=== PATIENT | male | born 1940 | race Caucasian/White ===

== ENCOUNTER 2016-08-31 09:48 | Observation (INO) | payer MEDICARE ==
[~2016-08-31] VITALS: Ht 182.9 cm; Wt 92.2 kg
[~2016-08-31 09:48] MED LIST: ACCUPRIL10 MG PO; AMOX/K CLAV875 M1 PO; AMOXICILLIN500 MG PO; ATENOLOL50 MG OR; BAYER ASA325 MG PO; BENADRYL 50MG C50 MG PO; BL ADULT ASA81 MG; CENTRUM PO; CIPRO500 MG OR; EX-LAX15 M1 OR; EX-LAX15 MG OR; FISH OIL CON1000 MG OR; FISH OIL CON300 MG PO; FLEXERIL PO; FLOMAX0.4 M1 PO; FLOMAX0.4 MG OR; FLONASE0.05 %; IBUPROFEN800 MG PO; LIPITOR10 MG PO; LIPITOR20 MG OR; LORTAB 1010 MG PO; LORTAB5 OR; MECLIZINE25 M1 OR; MEDDOSEPAK PO; MUPIROCIN2 % EX; NITROQUICK0.4 MG SL; NORVASC10 MG OR; NORVASC10 MG PO; NYSTATIN100000 M3 TOP; OMEPRAZOLE20 MG OR; OMEPRAZOLE20 MG PO; PAXIL30 MG; PLAVIX75 MG PO; PROVENTIL HFA; PROVENTIL0.083 % IN; RANITIDINE150 M1; ZANTAC150 M1 PO
[2016-08-31 10:48] LABS: HEMATOCRIT 42.4 % (39.0-50.0); HEMOGLOBIN 14.1 g/dl (14.0-18.0); IMMATURE GRANULOCYTES 0.4 % (0.0-1.0); MEAN CELL VOLUME 93.2 fL CALC (80.0-100.0); MEAN CORPUSCULAR HGB CONC 33.3 g/L CALC (32.0-36.0); NEUT# 6.36 thou/uL (1.82-7.42); RED BLOOD COUNT 4.55 mill/uL (4.70-6.10); RED CELL DISTRI WIDTH 13.7 % (11.5-15.5)
[2016-08-31 11:12] LABS: ALBUMIN 4.5 g/dL (3.2-5.0); ALKALINE PHOSPHATASE 100 u/l (38-126); AMYLASE 41 u/l (30-110); ANION GAP 16 (6-22 (CALC)); BILIRUBIN, TOTAL 0.3 mg/dL (0.0-1.4); BUN 14 mg/dL (8-23); BUN/CREATININE RATIO 14 (12-20 (CALC)); CALCIUM 9.3 mg/dL (8.4-10.2); CARBON DIOXIDE 25 mmol/l (22-30); CHLORIDE 105 mmol/l (95-108); GFR > 60 ML/MIN (>=60 (CALC)); GFR FOR AFR.AMER. > 60 ML/MIN (>=60 (CALC)); GLUCOSE 103 mg/dL (82-115); LIPASE 48 u/l (23-300); POTASSIUM 3.8 mmol/l (3.5-5.1); SGOT/AST 22 u/l (19-48); SGPT/ALT 24 u/l (11-66); SODIUM 141 mmol/l (137-146); TOTAL PROTEIN 7.6 g/dL (6.3-8.2)
[2016-08-31 11:24] LABS: MYOGLOBIN 42 ng/mL (0 - 121)
[2016-08-31 13:35] VITALS: BP 182/76
[2016-08-31] MEDS ORDERED: BICALUTAMIDE50 MG PO (14:55)
[2016-08-31] MEDS ORDERED: CYCLOBENZAPR10 MG PO (14:55)
[2016-08-31] MEDS ORDERED: FLONASE NASAL50 MCG (14:56)
[2016-08-31] MEDS ORDERED: GABAPENTIN300 MG PO (14:57)
[2016-08-31] MEDS ORDERED: ZOHYDRO ER15 M1 PO (14:59)
[2016-08-31] MEDS ORDERED: MICRO-K10 ME1 PO (15:00)
[2016-08-31] MEDS ORDERED: MORPHINE SUL30 M3 PO (15:01)
[2016-08-31] MEDS ORDERED: OXYCODONE HCL15 MG PO (15:02)
[2016-08-31] MEDS ORDERED: PAROXETINE10 MG PO (15:03)
[2016-08-31] MEDS ORDERED: PREDNISONE5 MG PO (15:04)
[2016-08-31 18:30] VITALS: BP 145/70
[2016-09-01] VITALS: BP 158/69
[2016-09-01 04:00] VITALS: BP 125/66
[2016-09-01 06:52] LABS: ANION GAP 13 (6-22 (CALC)); BUN 13 mg/dL (8-23); BUN/CREATININE RATIO 13 (12-20 (CALC)); CALCIUM 9.2 mg/dL (8.4-10.2); CALCULATED LDLCHOLESTEROL 46 mg/dL (62-129 (CALC)); CARBON DIOXIDE 25 mmol/l (22-30); CHLORIDE 108 mmol/l (95-108); GFR > 60 ML/MIN (>=60 (CALC)); GFR FOR AFR.AMER. > 60 ML/MIN (>=60 (CALC)); GLUCOSE 89 mg/dL (82-115); HDL CHOLESTEROL 45 mg/dL (>=40); POTASSIUM 4.1 mmol/l (3.5-5.1); SODIUM 142 mmol/l (137-146); TOTAL CHOLESTEROL 123 mg/dl (0-199); TOTAL TRIGLYCERIDES 162 mg/dl (30-149); VLDL CHOLESTROL 32 mg/dl (0-38 (CALC))
[2016-09-01 06:55] LABS: HEMATOCRIT 38.8 % (39.0-50.0); IMMATURE GRANULOCYTES 0.7 % (0.0-1.0); MEAN CELL VOLUME 92.4 fL CALC (80.0-100.0); MEAN CORPUSCULAR HGB CONC 33.5 g/L CALC (32.0-36.0); NEUT# 4.72 thou/uL (1.82-7.42); RED BLOOD COUNT 4.2 mill/uL (4.70-6.10); RED CELL DISTRI WIDTH 13.7 % (11.5-15.5)
[2016-09-01 07:52] LABS: MAGNESIUM 2.2 mg/dL (1.6-2.3)
[2016-09-01 08:15] VITALS: BP 159/79
[2016-09-01 08:19] VITALS: BP 159/79
== END 2016-09-01 10:23 | disposition home or self-care (01) ==
LOC: ENPENDDIS → ED 09:48 → ED-I 11:40 → ED 12:18 → MS2 12:19
PROVIDERS: Emergency Medicine; ADMIT Internal Medicine; ATTEND Internal Medicine
DX: R07.9 Chest pain, unspecified (principal); I25.10 Atherosclerotic heart disease of native coronary artery without angina pectoris; I10 Essential (primary) hypertension; F17.210 Nicotine dependence, cigarettes, uncomplicated; C61 Malignant neoplasm of prostate; C79.51 Secondary malignant neoplasm of bone; G89.3 Neoplasm related pain (acute) (chronic); Z79.02 Long term (current) use of antithrombotics/antiplatelets; Z79.82 Long term (current) use of aspirin; Z95.1 Presence of aortocoronary bypass graft; Z79.899 Other long term (current) drug therapy

== ENCOUNTER 2018-05-16 16:11 | Inpatient (IN) | payer MEDICARE ==
[~2018-05-16] VITALS: Ht 182.9 cm; Wt 90.6 kg
[~2018-05-16 16:11] MED LIST changes: +BICALUTAMIDE50 MG PO; +CYCLOBENZAPR10 MG PO; +FLONASE NASAL50 MCG; +GABAPENTIN300 MG PO; +MICRO-K10 ME1 PO; +MORPHINE SUL30 M3 PO; +OXYCODONE HCL15 MG PO; +PAROXETINE10 MG PO; +PREDNISONE5 MG PO; +ZOHYDRO ER15 M1 PO
--- NOTE | 2018-05-16 16:15 | NUR ---
PATIENT BACK TO ROOM VIA WHEELCHAIR.
[2018-05-16] MEDS ORDERED: WELLBUTRIN SR150 MG PO (17:18)
[2018-05-16] MEDS ORDERED: DIAZEPAM5 MG PO (17:18)
[2018-05-16 17:19] LABS: IMMATURE GRANULOCYTES 0.6 % (0.0-5.0); MEAN CORPUSCULAR HGB 35.8 pG CALC (26.0-32.0); MEAN CORPUSCULAR HGB CONC 32.3 g/L CALC (32.0-36.0); NEUT# 3.63 thou/uL (1.82-7.42); RED BLOOD COUNT 2.43 mill/uL (4.70-6.10); RED CELL DISTRI WIDTH 19.8 % (11.5-15.5)
[2018-05-16] MEDS ORDERED: LYNPARZA150 MG PO (17:19)
[2018-05-16 17:33] LABS: HEMATOCRIT 26.9 % (39.0-50.0); HEMOGLOBIN 8.7 g/dl (14.0-18.0); MEAN CELL VOLUME 110.7 fL CALC (80.0-100.0)
[2018-05-16 17:35] LABS: ALBUMIN 3.7 g/dL (3.2-5.0); ALKALINE PHOSPHATASE 179 u/l (38-126); BILIRUBIN, TOTAL 0.4 mg/dL (0.0-1.4); BUN 16 mg/dL (8-23); BUN/CREATININE RATIO 15 (12-20 (CALC)); CARBON DIOXIDE 22 mmol/l (22-30); CHLORIDE 104 mmol/l (95-108); CREATININE 1.1 mg/dL (0.7-1.3); GFR > 60 ML/MIN (>=60 (CALC)); GFR FOR AFR.AMER. > 60 ML/MIN (>=60 (CALC)); SGOT/AST 38 u/l (19-48); SODIUM 136 mmol/l (137-146); TOTAL PROTEIN 6.4 g/dL (6.3-8.2)
[2018-05-16 17:36] LABS: ANION GAP 14 (6-22 (CALC)); POTASSIUM 3.6 mmol/l (3.5-5.1)
--- NOTE | 2018-05-16 17:38 | NUR ---
PT PLACED ON O2 2L/M VIA NC BY RT AFTER COMPLETING ABG AND NOTIFYING ER PHYSICIAN OF RESULTS.
--- NOTE | 2018-05-16 18:00 | NUR ---
PT RESTING QUIETLY ON STRETCHER, RESTING QUIETLY
--- NOTE | 2018-05-16 18:20 | NUR ---
FLUIDS STOPPED PER ORDER.
--- NOTE | 2018-05-16 18:34 | NUR ---
2ND LACTIC DRAWN.
--- NOTE | 2018-05-16 18:53 | NUR ---
REPORT GIVEN TO JACOB MIDDLETON FOR CONTINUATION OF CARE. AWAITING ADMITTING ORDERS FROM DR. INGRAM.
--- NOTE | 2018-05-16 19:17 | NUR ---
CALLED DR. INGRAM FOR ADMITTING ORDERS , NO ANSWER, LEFT MESSAGE TO RETURN CALL.
--- NOTE | 2018-05-16 19:28 | NUR ---
PT ARRIVED FROM ER VIA AT 1927. WITH STAFF. IV SITE IN PLACE., NO DISTRESS NOTED. O2 @ 2LITERS WITH NC.
[2018-05-16 19:35] VITALS: BP 152/64
--- NOTE | 2018-05-16 19:36 | NUR ---
PT TAKEN TO MED SURG FLOOR PER W/C, PT BROUGHT TO ROOM HIS CANCER MEDICATION BECAUSE HE DID NOT THINK WE WOULD HAVE IT.
--- NOTE | 2018-05-16 19:45 | NUR ---
ASSESSMENT IS COMPLETED: PT IS RELAXING AND WATCHING TV. IV SITE IS FREE FROM REDNESS OR EDEMA. HR IS REG,PULSES ARE STRONG X4, ABD IS SOFT WITH ACTIVE BS. BREATH SOUNDS ARE CLEAR BILATERALLY. O2 @ 2LITERS WITH NC, CONTINUE TO OSBERVE AND MONITOR CALL EDWARDS WITHIN REACH,
--- NOTE | 2018-05-16 21:04 | NUR ---
URINE OBTAINED AND SENT FOR TESTING.
[2018-05-16 21:11] LABS: URINE BILIRUBIN - DIPSTICK NEGATIVE (NEGATIVE); URINE BLOOD DIPSTICK SMALL (NEGATIVE); URINE COLOR YELLOW; URINE GLUCOSE - DIPSTICK NEGATIVE (NEGATIVE); URINE KETONE NEGATIVE (NEGATIVE); URINE LEUK ESTERASE NEGATIVE (Negative); URINE NITRITE - DIPSTICK NEGATIVE (Negative); URINE PROTEIN - DIPSTICK 100 mg/dL (NEG-TRACE); URINE SPECIFIC GRAVITY >=1.030; URINE UROBILINOGEN - DIPSTICK 0.2 E.U./dL (0.2)
[2018-05-16 21:18] LABS: URINE CLARITY HAZY
[2018-05-16 21:26] LABS: URINE AMORPH SEDIMENT FEW hpf (NONE-FER); URINE SQUAMOUS EPITHELIAL CELL RARE EPI/hpf (0-FEW); URINE WBC 0-2 WBC/hpf (0-5)
[2018-05-16] MEDS ORDERED: ZYTIGA250 MG PO (21:53)
--- NOTE | 2018-05-17 00:15 | NUR ---
PT IS RESTING WITH EYES CLOSED. A LITTLE RESTLESS. IV SITE IS FREE FROM REDNESS OR EDEMA. CONITNUE TO OSBERVE AND MONITOR.
--- NOTE | 2018-05-17 04:15 | NUR ---
PT IS NOW RESTING, C/O "FEELS LIKE I CAN'T BREATHE, TURN THE AIR UP OR SOMETHING" COOLED THE ROOM DOWN AND PLACED HEAD OF THE BED UP RIGHT, ALSO INCREASED 02 TO 3 LITERS TOLERATING BETTER. CONTINUE TO OSBERVE AND MONITOR.
[2018-05-17 05:11] VITALS: BP 139/48
[2018-05-17 07:50] VITALS: BP 137/59
--- NOTE | 2018-05-17 08:59 | NUR ---
PT SEEN AWAKE, ALERT, ORIENTED. LUNGS HAVE VERY SLIGHT EXPIRATORY WHEEZES, USES NC 2 LPM. PT AWARE OF TESTING POSITIVE FOR INFLUENZA. NO DISTRESS NOTED, PT RESTS IN THE BED.
--- NOTE | 2018-05-17 12:32 | NUR ---
PT SEEN BY DR ARRIAGA THIS MORNING, NEW ORDERS RECEIVED. PT REMAINS ON ISOLATION PER POSITIVE INFLUENZA A, PRODUCTIVE COUGH HEARD OCCASIONALLY.
[2018-05-17 15:30] VITALS: BP 147/59
--- NOTE | 2018-05-17 16:25 | NUR ---
PT ENJOYS VISITORS AT THIS TIME, OCCASIONAL COUGH HEARD. NO DISTRESS NOTED.
--- NOTE | 2018-05-17 19:30 | NUR ---
PATIENT RESTING IN BED AT THIS TIME POSITIONED ON LEFT SIDE AND APPEARS SLEEPING WITH EYES CLOSED. O2 VIA NASAL CANNULA IN PLACE AT 2LPM. CALL LIGHT IN REACH. WILL CONT TO MONITOR.
[2018-05-17 20:00] VITALS: BP 142/63
[2018-05-17 20:34] VITALS: BP 142/63
--- NOTE | 2018-05-17 21:00 | NUR ---
PATIENT RESTING IN BED WITH HOB ELEVATED AND O2 VIA NASAL CANNULA IN PLACE. PATIENT IS AWAKE ALERT AND ORIENTEDX3. PATIENT WITH SALINE LOCK TO LEFT AC SITE-SITE APPEARS HEALTHY AT THIS TIME. PATIENT VOIDED 200CC OF YELLOW URINE IN URINAL. MEDICATED FOR LOW BACK AND LEFT HIP PAIN WITH MORPHINE ER PORDERED FOR PAIN. PATIENT ON DROPLET PRECAUTIONS FOR INFLUENZA A. SAFETY PRECAUTIONS REINFORCED. CALL LIGHT IN REACH. WILL CONT TO MONITOR.
--- NOTE | 2018-05-18 02:00 | NUR ---
APPEARS SLEEPING AT THIS TIME WITH O2 VIA NASAL CANNULA IN PLACE. RESP ARE EVEN AND UNLABORED. CALL LIGHT IN REACH. WILL CONT TO MONITOR.
[2018-05-18 04:12] VITALS: BP 140/53
--- NOTE | 2018-05-18 04:30 | NUR ---
PATIENT RESTING IN BED WITH O2 OFF-O2 SAT 93%. VS TAKEN AND RECORDED. VOIDED 200CC OF CLARK URINE IN URINAL. SALINE LOCK INTACT TO LEFT AC-SITE REMAINS HEALTHY AT THIS TIME. NO COMPLAINTS AT THIS TIME. CALL LIGHT IN REACH. WILL CONT TO MONITOR.
[2018-05-18 04:53] LABS: HEMATOCRIT 24.9 % (39.0-50.0); HEMOGLOBIN 8.2 g/dl (14.0-18.0); IMMATURE GRANULOCYTES 0.3 % (0.0-5.0); MEAN CELL VOLUME 107.8 fL CALC (80.0-100.0); MEAN CORPUSCULAR HGB 35.5 pG CALC (26.0-32.0); MEAN CORPUSCULAR HGB CONC 32.9 g/L CALC (32.0-36.0); NEUT# 1.85 thou/uL (1.82-7.42); RED BLOOD COUNT 2.31 mill/uL (4.70-6.10); RED CELL DISTRI WIDTH 19.2 % (11.5-15.5)
[2018-05-18 05:14] LABS: ALKALINE PHOSPHATASE 144 u/l (38-126); ANION GAP 8 (6-22 (CALC)); BILIRUBIN, TOTAL 0.4 mg/dL (0.0-1.4); BUN 12 mg/dL (8-23); BUN/CREATININE RATIO 16 (12-20 (CALC)); CARBON DIOXIDE 24 mmol/l (22-30); CHLORIDE 110 mmol/l (95-108); CREATININE 0.7 mg/dL (0.7-1.3); GFR > 60 ML/MIN (>=60 (CALC)); GFR FOR AFR.AMER. > 60 ML/MIN (>=60 (CALC)); MAGNESIUM 2.3 mg/dL (1.6-2.3); POTASSIUM 3.2 mmol/l (3.5-5.1); SGOT/AST 31 u/l (19-48); SODIUM 139 mmol/l (137-146); TOTAL PROTEIN 5.2 g/dL (6.3-8.2)
[2018-05-18 05:19] LABS: ALBUMIN 2.9 g/dL (3.2-5.0)
[2018-05-18 07:30] VITALS: BP 161/67
--- NOTE | 2018-05-18 07:30 | NUR ---
PT RESTOING IN BED, ALERT AND OREINTED, AM ASSESSMENT COMPLETED SEE INTERVNETIONS; OFFERS NO COMPLAINTS OF PAIN OR DISTRESS, DENIES N/V. O2 IN PLACE AT 2L VIA NC, OCCASIONLA DRY COUGH NOTED, PT DENIES PRODUCTIVE; SYAS IT WAS AT HOME BUT NOT SINCE HE HAS BEEN HERE. SKIN WARM DRY AND INTACT, IV ACCESS SALINE LOCKED, SITE BENIGN, CALL EDWARDS WITHIN REACH, WILL CONTINUE TO MONITOR.
--- NOTE | 2018-05-18 10:29 | NUR ---
PT RESTING IN BED, OFFERS NO COMPLAINTS, DENIES NEED FOR APIN MEDICATION AT THIS TIME, TAKES PO MEDICATIONS WELL, APPETITE FAIR, PO INTAKE MODERATE PT STATES JUST DOESN'T FEEL LIKE EATING, CALL EDWARDS WITHIN REACH, WILL CONTINUE TO MONITOR.
--- NOTE | 2018-05-18 11:44 | NUR ---
SET UP ASSIST PROVIDED FRO AFTERNOON MEAL, VISITOR AT BEDSIDE, CALL EDWARDS WITHIN REACH.
--- NOTE | 2018-05-18 12:59 | NUR ---
Started Solu-medrol as ordered, pt states he has taken it before when in the hospital. Educated regarding reason for administration, expectiations and potential side effects, all questions answered.
--- NOTE | 2018-05-18 13:59 | NUR ---
PT RESTING IN BED, OFFERS NO COMPLAINTS, SON WAS AT BEDSIDE EARLIER AND GONE AT THIS TIME, DOZES INTERMITTENLY, CALL EDWARDS WITHIN REACH
[2018-05-18 16:00] VITALS: BP 156/69
--- NOTE | 2018-05-18 16:46 | NUR ---
PT SOB WITH EXERTION AFTER AMBULATING TO BATHROOM, RECOVERS WELL WITH REST, O2 ONAT 2L VIA NC, IV ABT INFUSING WITHOUT INCIDENT, GOOD ASPIRATE NOTED, WILL CONTINUE TO MONITOR.
--- NOTE | 2018-05-18 17:38 | NUR ---
PER METHODS ANALYST CATESHIA. PT HAD LARGE SOFT/LOOSE BM, PT PARTIALLY INCONTINENT, ASSISTED WITH CLEAN UP AND BACK TO BED RESTING WITH O2 AT 2L, CALL EDWARDS WITHIN REACH
[2018-05-18 19:12] VITALS: BP 158/63
--- NOTE | 2018-05-18 19:45 | NUR ---
ASSESSMENT IS COMPLETED: IV SITE IS FREE FROM REDNESS OR EDEMA. HR IS REG,PULSES ARE STRONG X4, ABD IS SOFT WITH ACTIVE BS. BREATH SOUNDS ARE WHEEZING AND CLEAR. CONTINUE TO OSBERVE AND MONITOR. CALL EDWARDS WITHIN REACH.
--- NOTE | 2018-05-19 00:30 | NUR ---
PT IS RESTING WITH EYES CLOSED. NO DISTRESS NOTED. IV SITE IS FREE FROM REDNESS OR EDEMA. CONITNUE TO OSBERVE AND MONITOR.
--- NOTE | 2018-05-19 04:45 | NUR ---
pt is relaxing in bed with no distress noted. iv site is free from redness or edema.
[2018-05-19 05:17] VITALS: BP 153/61
[2018-05-19 07:30] VITALS: BP 142/65
--- NOTE | 2018-05-19 07:30 | NUR ---
PT RESTING IN BED, ALERT AND ORIENTED, AM ASSESSMENT COMPLETED SEE INTERVNETIONS; OFFERS NO COMPLAINTS OF PAIN OR DISTRESS, DENIES N/V. O2 REMAINS AT ROOM AIR WITH SATS MAINTAINED AT 95%, OCCASIONAL MOIST COUGH NOTED, PT DENIES PRODUCTIVE; SKIN WARM DRY AND INTACT, IV ACCESS SALINE LOCKED, SITE BENIGN, CALL EDWARDS WITHIN REACH, WILL CONTINUE TO MONITOR.
--- NOTE | 2018-05-19 08:53 | NUR ---
SON AT BEDSIDE, PT OFFERS NO NEW COMPLAINTS, CALL EDWARDS WITHIN REACH
[2018-05-19] MEDS ORDERED: BUPROPION100 MG PO (09:59)
--- NOTE | 2018-05-19 10:20 | NUR ---
PT TEARY EYED AT TIMES, RESTARTED WELLBUTRIN PER PT REQUEST/PROVIDER ORDER.
--- NOTE | 2018-05-19 10:21 | NUR ---
REDD REID AT BEDSIDE, POC DISCUSSED.
[2018-05-19 11:18] LABS: ANION GAP 9 (6-22 (CALC)); BUN 9 mg/dL (8-23); BUN/CREATININE RATIO 14 (12-20 (CALC)); CARBON DIOXIDE 24 mmol/l (22-30); CHLORIDE 110 mmol/l (95-108); CREATININE 0.6 mg/dL (0.7-1.3); GFR > 60 ML/MIN (>=60 (CALC)); GFR FOR AFR.AMER. > 60 ML/MIN (>=60 (CALC)); POTASSIUM 2.8 mmol/l (3.5-5.1); SODIUM 139 mmol/l (137-146)
--- NOTE | 2018-05-19 11:26 | NUR ---
AND REDD REID INTO SEE PATIENT, POC DISCUSSED
--- NOTE | 2018-05-19 12:24 | NUR ---
COTNINUES TO TOLERATE DIET, APPETITE FAIR TO GOOD, SON INTERMITTENLY AT BEDSIDE. WILL CONTINUE TO MONITOR.
--- NOTE | 2018-05-19 16:52 | NUR ---
SON AT BEDSIDE, IV ABT INFUSING WITJHOUT INCIDENT, AFTER GOOD ASPIRATE NOTED, PT VOIDS CLEAR YELLOW URINE IN URINAL WITHOUT INCIDENT, DENIES PAIN OR DISCOMFORT, DOES ASK ABOUT SLEEPING PILL, PT AWARE HE HAS RESTORIL ORDERED PRN AT HS IF NEEDED, WILL PASS ON IN REPORT WELL.
--- NOTE | 2018-05-19 18:03 | NUR ---
PT DECLINED FOOD FROM DIEATRY SON GOING TO [employer] TO GET HIM CHICKEN NUGGETS, CALL EDWARDS WITHIN REACH
--- NOTE | 2018-05-19 18:50 | NUR ---
BEDSIDE REPORT RECEIVED FROM KANE JACKMAN. PT SITTING UP IN BED EATING DINNER WITH SON AT BEDSIDE; ALERT AND ORIENTED. PT C/O SEVERE PAIN WITH MOVEMENT TO LEFT SIDE; REQUESTS MS CONTIN AND SLEEPING AID AT HS. RESPIRATIONS EVEN AND UNLABORED ON ROOM AIR. PLAN OF CARE REVIEWED. PT ENCOURAGED TO VERBALIZE CONCERNS. STATES UNDERSTANDING. SAFETY MEASURES IN PLACE. CALL LIGHT WITHIN REACH.
[2018-05-19 19:47] VITALS: BP 152/61
[2018-05-20] VITALS (10 sets, daily range): BP systolic 136–158; BP diastolic 52–70
--- NOTE | 2018-05-20 04:45 | NUR ---
PT AWAKE AND ALERT AT THIS TIME; REPORTS THAT HE ONLY SLEPT ABOUT ONE HOUR EVEN WITH THE SLEEPING AID GIVEN AT HS. DENIES PAIN CURRENTLY. NO REQUESTS OR CONCERNS AT THIS TIME. NO CHANGES IN CONDITION. CALL LIGHT WITHIN REACH.
[2018-05-20 05:38] LABS: HEMATOCRIT 23.3 % (39.0-50.0); HEMOGLOBIN 7.7 g/dl (14.0-18.0); IMMATURE GRANULOCYTES 1.4 % (0.0-5.0); MEAN CELL VOLUME 107.4 fL CALC (80.0-100.0); MEAN CORPUSCULAR HGB 35.5 pG CALC (26.0-32.0); NEUT# 7.08 thou/uL (1.82-7.42); RED BLOOD COUNT 2.17 mill/uL (4.70-6.10); RED CELL DISTRI WIDTH 19.6 % (11.5-15.5)
[2018-05-20 05:55] LABS: ALBUMIN 3.2 g/dL (3.2-5.0); ALKALINE PHOSPHATASE 136 u/l (38-126); ANION GAP 10 (6-22 (CALC)); BILIRUBIN, TOTAL 0.2 mg/dL (0.0-1.4); BUN 10 mg/dL (8-23); BUN/CREATININE RATIO 13 (12-20 (CALC)); CARBON DIOXIDE 23 mmol/l (22-30); CHLORIDE 110 mmol/l (95-108); CREATININE 0.8 mg/dL (0.7-1.3); GFR > 60 ML/MIN (>=60 (CALC)); GFR FOR AFR.AMER. > 60 ML/MIN (>=60 (CALC)); MAGNESIUM 2.2 mg/dL (1.6-2.3); POTASSIUM 2.7 mmol/l (3.5-5.1); SGOT/AST 25 u/l (19-48); SODIUM 140 mmol/l (137-146); TOTAL PROTEIN 5.3 g/dL (6.3-8.2)
--- NOTE | 2018-05-20 08:00 | NUR ---
PT SEEN ALERT, ORIENTED, STATES THAT HE HOPES TO GO HOME TODAY. LUNGS ARE CLEAR, ROOM AIR. NO COMPLAINTS OR EVIDENCE OF DISTRESS.
--- NOTE | 2018-05-20 12:00 | NUR ---
PT AT REST IN THE BED, NO SHORTNESS OF BREATH EXCEPT WITH EXERTION. PT WAITS FOR DR ARRIAGA TO ROUND, HOPES FOR DISCHARGE.
--- NOTE | 2018-05-20 17:54 | NUR ---
PT RECEIVES POTASSIUM PIGGYBACK AND ABX SIMULTANEOUSLY. PT AWARE OF ORDER FOR BLOOD TRANSFUSION.
--- NOTE | 2018-05-20 19:54 | NUR ---
PATIENT RESTING IN BED-AWAKE ALERT AND ORIENTEDX3. CONSENT FOR BLOOD TRANSFUSION OBTAINED. 1ST UNIT OF PRBC'S HUNG VIA RIGHT FOREARM. PATIENT EDUCATED REGUARDING POSSIBLE TRANSFUSION REACTION SX. VERBALIZES UNDERSTANDING IV KCL RIDER PATENT AND INFUSING LEFT AC SITE. MONITORING PATIENT AT BEDSIDE PER BLODD TRANSFUSION PROTOCOL.
--- NOTE | 2018-05-20 22:30 | NUR ---
1ST UNIT OF PRBC'S FINISHED WITHOUT ANY ADVERSE REACTION. PATIENT CONT TO REST IN BED WITH NO COMPLAINTS AT THIS TIME. CALL LIGHT IN REACH. WILL CONT TO MONITOR.
--- NOTE | 2018-05-20 23:07 | NUR ---
PATIENT RESTING IN BED-2ND UNIT OF PRBC'S HUNG-UNIT #[id number] VIA LEFT FOREARM SITE. MONITORING PATIENT AT BEDSIDE PER PROTOCOL. REINFORCED POSSIBLE ADVERSE REACTIONS. VERBALIZES UNDERSTANDING.
[2018-05-21 00:21] VITALS: BP 146/63
[2018-05-21 01:45] VITALS: BP 154/72
--- NOTE | 2018-05-21 01:45 | NUR ---
SECOND UNIT OF PRBC'S FINISHED WITHOUT ANY ADVERSE REACTIONS NOTED. IV SITE TO RIGHT FOREARM FLUSHED WITH NS. PATIENT IS VOIDING QS CLEAR YELLOW URINE IN URINAL. PATIENT WITH NO COMPLAINTS AT THIS TIME. WILL CONT TO MONITOR.
[2018-05-21 01:59] VITALS: BP 148/70
[2018-05-21 03:50] VITALS: BP 148/69
--- NOTE | 2018-05-21 04:00 | NUR ---
RESTING IN BED WITH NO COMPLAINTS AT THIS TIME. PATIENT APPEARS SLEEPING WITH EYES CLOSED. CALL LIGHT IN REACH. WILL CONT TO MONITOR.
[2018-05-21 05:17] LABS: HEMATOCRIT 27.8 % (39.0-50.0); HEMOGLOBIN 9.5 g/dl (14.0-18.0); IMMATURE GRANULOCYTES 1.9 % (0.0-5.0); MEAN CELL VOLUME 102.2 fL CALC (80.0-100.0); MEAN CORPUSCULAR HGB 34.9 pG CALC (26.0-32.0); MEAN CORPUSCULAR HGB CONC 34.2 g/L CALC (32.0-36.0); NEUT# 6.17 thou/uL (1.82-7.42); RED BLOOD COUNT 2.72 mill/uL (4.70-6.10); RED CELL DISTRI WIDTH 20.5 % (11.5-15.5)
[2018-05-21 05:37] LABS: ALBUMIN 3.1 g/dL (3.2-5.0); ALKALINE PHOSPHATASE 131 u/l (38-126); ANION GAP 10 (6-22 (CALC)); BILIRUBIN, TOTAL 0.5 mg/dL (0.0-1.4); BUN 12 mg/dL (8-23); BUN/CREATININE RATIO 15 (12-20 (CALC)); CARBON DIOXIDE 23 mmol/l (22-30); CHLORIDE 110 mmol/l (95-108); CREATININE 0.8 mg/dL (0.7-1.3); GFR > 60 ML/MIN (>=60 (CALC)); GFR FOR AFR.AMER. > 60 ML/MIN (>=60 (CALC)); MAGNESIUM 2.2 mg/dL (1.6-2.3); SGOT/AST 28 u/l (19-48); SODIUM 140 mmol/l (137-146); TOTAL PROTEIN 5.3 g/dL (6.3-8.2)
--- NOTE | 2018-05-21 07:10 | NUR ---
PT REPORT RECIEVED FROM KANE COON. PT SLEEPING IN BED. CALL LIGHT IN REACH. WILL CONTINUE TO MONITOR
[2018-05-21 08:36] VITALS: BP 142/59
[2018-05-21 11:45] VITALS: BP 152/60
--- NOTE | 2018-05-21 12:00 | NUR ---
PT EATING LUNCH AT THIS TIME. RESP EVEN AND UNLABORED. NO C/O PAIN OR NEEDS. FAMILY AT BEDSIDE. CALL LIGHT IN REACH. WILL CONTINUE TO MONITOR
[2018-05-21] MEDS ORDERED: CIPROFLOXACN500 MG PO (15:42)
[2018-05-21] MEDS ORDERED: PREDNISONE10 MG PO (15:42)
--- NOTE | 2018-05-21 16:11 | NUR ---
DISCUSSED W/ PT THE NEEDS TO STAY IN HOSPITAL TO RECEIVE ABX BEFORE DISCHARGE. PT INSIST ON GOING HOME. DISCUSSED D/C INSTRUCTIONS W/ PT AND ABX PRESCRIPTIONS. PT STATES UNDERSTANDING. IV REMOVED. CATHETER INTACT. PT DENIES ANY FURTHER NEEDS. PT TO BE TRANSPORTED VIA WHEELCHAIR DOWNSTAIRS BY HEAD CAGER.
--- NOTE | 2018-05-21 16:30 | NUR ---
Discharge instructions given. Patient verbalizes understanding of same. Discharged in stable condition via Wheelchair to Home with family. All belongings sent with pt.
== END 2018-05-21 16:30 | disposition home or self-care (01) | DRG 191 ==
LOC: ED 16:11 → ED-I 18:24 → ED 18:39 → MS2 18:40
PROVIDERS: Emergency Medicine; Nurse Practitioner Family; ADMIT Internal Medicine; ATTEND Internal Medicine Nephrology
PROC: 30233N1 Transfusion of Nonautologous Red Blood Cells into Peripheral Vein, Percutaneous Approach (ICD-10-PCS; principal; 2018-05-20)
PROC: 30233N1 Transfusion of Nonautologous Red Blood Cells into Peripheral Vein, Percutaneous Approach (ICD-10-PCS; 2018-05-20)
DX: J44.1 Chronic obstructive pulmonary disease with (acute) exacerbation (principal); C79.51 Secondary malignant neoplasm of bone; J10.1 Influenza due to other identified influenza virus with other respiratory manifestations; I10 Essential (primary) hypertension; I25.10 Atherosclerotic heart disease of native coronary artery without angina pectoris; C61 Malignant neoplasm of prostate; D64.81 Anemia due to antineoplastic chemotherapy; T45.1X5A Adverse effect of antineoplastic and immunosuppressive drugs, initial encounter; F32.9 Major depressive disorder, single episode, unspecified; M19.90 Unspecified osteoarthritis, unspecified site; G89.3 Neoplasm related pain (acute) (chronic); E78.5 Hyperlipidemia, unspecified; R80.9 Proteinuria, unspecified; Z87.891 Personal history of nicotine dependence; Z79.899 Other long term (current) drug therapy; Z95.1 Presence of aortocoronary bypass graft
CPT/HCPCS: G0378; J1650; P9016

== ENCOUNTER 2018-07-30 01:22 | Inpatient (IN) | payer MEDICARE ==
[2018-07-30] VITALS (15 sets, daily range): BP systolic 114–161; BP diastolic 49–82
[~2018-07-30] VITALS: Ht 182.9 cm; Wt 90.9 kg
[~2018-07-30 01:22] MED LIST changes: +BUPROPION100 MG PO; +CIPROFLOXACN500 MG PO; +DIAZEPAM5 MG PO; +LYNPARZA150 MG PO; +PREDNISONE10 MG PO; +WELLBUTRIN SR150 MG PO; +ZYTIGA250 MG PO
--- NOTE | 2018-07-30 01:52 | NUR ---
PT. TO ROOM 10 VIA W/C WITH C/O CP ON AND OFF FOR APPROX. 1 WEEK, SKIN WARM AND DRY, COLOR PALE RESP. EVEN AND UNLABORED. BILATERAL LUNG DALEY ARE CTA, NO EDEMA NOTED TO BLE.
--- NOTE | 2018-07-30 01:53 | NUR ---
O2 SAT 90 % ON RA O2 2 LIT/NC APPLIED. O2 SAT NOW 96%.
[2018-07-30 02:00] LABS: ALBUMIN 3.7 g/dL (3.2-5.0); AMYLASE < 30 u/l (30-110); ANION GAP 13 (6-22 (CALC)); BUN 11 mg/dL (8-23); BUN/CREATININE RATIO 13 (12-20 (CALC)); CARBON DIOXIDE 26 mmol/l (22-30); CHLORIDE 101 mmol/l (95-108); CREATININE 0.8 mg/dL (0.7-1.3); GFR > 60 ML/MIN (>=60 (CALC)); GFR FOR AFR.AMER. > 60 ML/MIN (>=60 (CALC)); IMMATURE GRANULOCYTES 0.5 % (0.0-5.0); LIPASE 12 u/l (23-300); MEAN CELL VOLUME 104.6 fL CALC (80.0-100.0); MEAN CORPUSCULAR HGB 35.3 pG CALC (26.0-32.0); MEAN CORPUSCULAR HGB CONC 33.8 g/L CALC (32.0-36.0); RED BLOOD COUNT 1.53 mill/uL (4.70-6.10); SGOT/AST 26 u/l (19-48); SODIUM 137 mmol/l (137-146)
[2018-07-30 02:02] LABS: HEMOGLOBIN 5.4 g/dl (14.0-18.0)
[2018-07-30 02:06] LABS: ALKALINE PHOSPHATASE 206 u/l (38-126)
--- NOTE | 2018-07-30 02:06 | NUR ---
IN ROOM TO DISCUSS CLINICAL FINDINGS WITH PT.
[2018-07-30 02:08] LABS: ACT PARTIAL THROMBO TIME 21.2 SECONDS (20.0-32.5); PROTHROMBIN TIME 11.3 SECONDS (9.0-12.5)
[2018-07-30 02:12] LABS: MYOGLOBIN 48 ng/mL (0 - 121)
[2018-07-30 02:16] LABS: INTERNATIONAL NORMALIZED RATIO 1.1 RATIO (0.7-1.3)
--- NOTE | 2018-07-30 02:33 | NUR ---
PO POTASSIUM GIVEN PER MD ORDER.
--- NOTE | 2018-07-30 02:39 | NUR ---
MD IN ROOM TO PERFROM RECTAL EXAM. PT. TOLERATED WELL.
--- NOTE | 2018-07-30 02:44 | NUR ---
MD IN ROOM TO DISCUSS CLINICAL FINDINGS WITH PT. AND MAKE HIM AWARE OF ADMISSION. VERBALIZED UNDERSTANDING.
--- NOTE | 2018-07-30 02:48 | NUR ---
PT. UNABLE TO GIVE URINE SAMPLE AT THIS TIME.
--- NOTE | 2018-07-30 03:09 | NUR ---
Admission Note Report Given to: BYRON LOERA Transported by: Wheelchair X Stretcher Transported with: X Nurse Transporter X Patent IV X O2 X Claim Rep
--- NOTE | 2018-07-30 03:15 | NUR ---
PT. TAKEN TO ICU VIA STRETCHER, NO C/O.
--- NOTE | 2018-07-30 03:18 | NUR ---
77 yr old VERY PALE male adm [id number] per stretcher from er as medsurg tele overflow. amb from stretcher to bed x2 assists. gilberto well. o2 cont per nc. hospital monitor shows sinus rhythm. #20 rac saline lock. history obtained per pt, son & er record. oriented to room. fall precautions initiated.
--- NOTE | 2018-07-30 04:08 | NUR ---
#1 unit blood began as ordered.
--- NOTE | 2018-07-30 06:05 | NUR ---
#1 unit blood infused.
--- NOTE | 2018-07-30 06:45 | NUR ---
report given to shawna.
--- NOTE | 2018-07-30 07:06 | NUR ---
RECVD REPORT FROM EVARISTO MATTHEWS. FILLED OUT APPROVAL TO USE PTS OWN MED FROM HOME FORM TO SEND TO PHARMACY.
[2018-07-30 07:51] LABS: IMMATURE GRANULOCYTES 0.7 % (0.0-5.0); MEAN CELL VOLUME 103.3 fL CALC (80.0-100.0); MEAN CORPUSCULAR HGB 34.9 pG CALC (26.0-32.0); MEAN CORPUSCULAR HGB CONC 33.8 g/L CALC (32.0-36.0); NEUT# 1.68 thou/uL (1.82-7.42); RED BLOOD COUNT 1.52 mill/uL (4.70-6.10)
[2018-07-30 07:58] LABS: CHOLESTEROL HDL RATIO 2.1 (<4.4 (CALC)); MAGNESIUM 2.2 mg/dL (1.6-2.3)
--- NOTE | 2018-07-30 07:59 | NUR ---
PT RESTING IN BED. LAB @BEDSIDE FOR MORNING DRAW. PT STATES HE WANTS TO GO BACK TO SLEEP, WILL HOLD BREAKFAST UNTIL PT WAKES UP.
[2018-07-30 08:04] LABS: HEMATOCRIT 15.7 % (39.0-50.0); HEMOGLOBIN 5.3 g/dl (14.0-18.0)
--- NOTE | 2018-07-30 08:05 | NUR ---
CRITICAL LAB- [facility] 5.3 DR HOGAN NOTIFIED, WAITING FOR ORDERS.
--- NOTE | 2018-07-30 08:25 | NUR ---
RBVO FOR 2 MORE UNITS OF RBC.
--- NOTE | 2018-07-30 09:59 | NUR ---
SON @BEDSIDE, BROUGHT PT COFFEE. SON WAKING PT UP.
--- NOTE | 2018-07-30 10:01 | NUR ---
SON LEFT, STATES DAD JUST WANTS TO SLEEP.
--- NOTE | 2018-07-30 10:32 | NUR ---
JUDE, CASE MANAGENT, AT BEDSIDE.
--- NOTE | 2018-07-30 11:08 | NUR ---
PT AWAKE, USING URINAL WHILE LAYING IN BED. WATCHING TV. GIVEN MORNING MEDS. PT APPRECIATES NOT LETTING VISITORS IN SO HE CAN SLEEP. POURED PT A CUP ON COFFEE SON BROUGHT HIM. PT A&Ox4. WHEN ASED ABOUT LUNCH & FUTURE VISITORS, PT STATES HE DOESNT KNOW.
--- NOTE | 2018-07-30 11:59 | NUR ---
FEED PT LUNCH. PT ONLY ATE MINIMAL LUNCH BUT DRANK SWEET TEA. DIETARY AWARE OF PTS FOOD PREFERENCES. PT FELL BACK ASLEEP.
--- NOTE | 2018-07-30 12:33 | NUR ---
SON + ANOTHER MALE @BEDSIDE. SON CONCERNED ABOUT PTS ABD SIZE AND THAT PT HAS NOT HAD A BM x7 DAYS. PT DENIES PAIN. PT IS MORE AWAKE THAN THIS AM. SKIN STARTING TO PINK. JEANETTE RAINEY AWARE OF CONCERNS.
--- NOTE | 2018-07-30 13:04 | NUR ---
VISITORS IN & OUT. PT RESTING IN BED. NO NEEDS AT THIS TIME.
--- NOTE | 2018-07-30 14:04 | NUR ---
3RD UNIT OF BLOOD COMPLETED. REMAINING NACL RUNNING THROUGH TO RINSE OUT LINE.
--- NOTE | 2018-07-30 15:18 | NUR ---
PT MEDICATED FOR CONSTIPATION. BSC READY IN ROOM. CALLBELL W/IN REACH.
--- NOTE | 2018-07-30 15:49 | NUR ---
LAB AT BEDSIDE FOR DRAW
--- NOTE | 2018-07-30 15:58 | NUR ---
CALLED [facility] FOR BED ASSIGNMENT.
--- NOTE | 2018-07-30 16:24 | NUR ---
REPORT CALLED TO KANE MERA ON [facility]. CALLED ER FOR TELE.
--- NOTE | 2018-07-30 16:58 | NUR ---
PT ARRIVED TO MS2 VIA WHEELCHAIR ACCOMPANIED BY ICU NURSE. PT ALERT AND ORIENTED X3, AMBULATED TO DIGITAL STANDING SCALE WITH STEADY GAIT. ORIENTED PT TO ROOM AND CALL LIGHT, PT VOICES NO NEEDS OR COMPLAINTS AT THIS TIME. CALL LIGHT IN REACH,CONTINUE TO MONITOR.
--- NOTE | 2018-07-30 17:01 | NUR ---
PT TRANSFERED TO [facility]. ALL BELONGINGS TRANSFERED WITH PT. SON, SABA, CALLED TO NOTIFY OF PTS MOVE TO NEW ROOM. SON HAS PTS CELL PHONE AT HOME.
--- NOTE | 2018-07-30 19:00 | NUR ---
REPORT RECIVED FROM EVARISTO MERA. PT RESTING IN BED NO SIGNS OR SYMPTOMS OF DISTRESS. SAFETY PRECAUTIONS IN PLACE. WILL CONTINUE TO MONITOR.
--- NOTE | 2018-07-30 20:00 | NUR ---
PT RESTING IN BED. ALERT AND ORIENTED. RESPIRATIONS EVEN AND UNLABORED ON O2 VIA NC @ 2L. LUNGS SOUND CLEAR. PEDAL PULSES STRONG. PT DENIES ANY PAIN OR DISCOMFORT. PT ASKED " DOES THE T.V. WORK, I CAN'T GET IT TO WORK" ASSISTED PT WITH THE T.V. AND SHOWED HIM HOW IT WORKED. PT ENCOURAGED TO USE CALL EDWARDS IF NEEDS SHOULD ARISE. SAFETY PRECAUTIONS IN PLACE. WILL CONTINUE TO MONITOR.
[2018-07-30 22:15] LABS: URINE BILIRUBIN - DIPSTICK NEGATIVE (NEGATIVE); URINE BLOOD DIPSTICK TRACE-LYSED (NEGATIVE); URINE COLOR YELLOW; URINE GLUCOSE - DIPSTICK NEGATIVE (NEGATIVE); URINE KETONE TRACE mg/dL (NEGATIVE); URINE LEUK ESTERASE NEGATIVE (NEGATIVE); URINE NITRITE - DIPSTICK NEGATIVE (Negative); URINE PH 5.5 (4.5-8.0); URINE PROTEIN - DIPSTICK NEGATIVE (NEG-TRACE); URINE SPECIFIC GRAVITY <=1.005
--- NOTE | 2018-07-31 | NUR ---
PT SLEEPING IN BED. RESPIRATIONS EVEN AND UNLABORED. NO SIGNS OR SYMPTOMS OF DISTRESS. WILL CONTINUE TO MONITOR.
[2018-07-31 00:25] VITALS: BP 135/58
[2018-07-31 04:50] VITALS: BP 134/61
--- NOTE | 2018-07-31 04:54 | NUR ---
PT RESTING IN BED WATCHING TV, DINIES ANY NEEDS AT THIS TIME. SAFETY PRECAUTIONS IN PLACE. WILL CONTINUE TO MONITOR.
--- NOTE | 2018-07-31 07:05 | NUR ---
REPORT RECEIVED FROM NAY. PT IS SLEEPING IN BED WITH NO S/S OF DISTRESS NOTED. CALL LIGHT IN REACH.
[2018-07-31 07:07] LABS: IMMATURE GRANULOCYTES 0.7 % (0.0-5.0); MEAN CORPUSCULAR HGB 32.1 pG CALC (26.0-32.0); MEAN CORPUSCULAR HGB CONC 34.8 g/L CALC (32.0-36.0); NEUT# 2.23 thou/uL (1.82-7.42); RED BLOOD COUNT 2.49 mill/uL (4.70-6.10); RED CELL DISTRI WIDTH 22.2 % (11.5-15.5)
[2018-07-31 07:19] LABS: MEAN CELL VOLUME 92.4 fL CALC (80.0-100.0)
[2018-07-31 07:20] LABS: ANION GAP 11 (6-22 (CALC)); BUN 9 mg/dL (8-23); BUN/CREATININE RATIO 12 (12-20 (CALC)); CARBON DIOXIDE 27 mmol/l (22-30); CHLORIDE 103 mmol/l (95-108); CREATININE 0.7 mg/dL (0.7-1.3); GFR > 60 ML/MIN (>=60 (CALC)); GFR FOR AFR.AMER. > 60 ML/MIN (>=60 (CALC)); POTASSIUM 2.5 mmol/l (3.5-5.1); SODIUM 139 mmol/l (137-146)
[2018-07-31 07:32] VITALS: BP 135/57
--- NOTE | 2018-07-31 08:01 | NUR ---
PT IS SITTING IN THE SIDE OF THE BED. ASSESSMENT DONE. TELE IN PLACE. PT IS A&O X3. PT DENIES PAIN AT THIS TIME. # 20 RAC THAT APPEARS HEALTHY. PT DENIES NEEDS AT THIS TIME. SAFETY PRECAUTIONS REINFORCED AND CALL LIGHT IN REACH.
[2018-07-31 11:22] VITALS: BP 141/58
--- NOTE | 2018-07-31 11:40 | NUR ---
DR. ARRIAGA AT BEDSIDE TO ASSESS PT AND DISCUSS POC WITH PT. CALL LIGHT IN REACH.
[2018-07-31 15:20] VITALS: BP 143/67
--- NOTE | 2018-07-31 16:00 | NUR ---
PT IS RESTING IN BED WITH NO S/S OF DISTRESS NOTED. PT DENIES NEEDS AT THIS TIME. TELE IN PLACE. CALL LIGHT IN REACH.
--- NOTE | 2018-07-31 19:30 | NUR ---
PATIENT RESTING IN BED. PATIENT IS PALE, SKIN IS WARM AND DRY. AWAKE ALERT AND ORIENTEDX3. O2 VIA NASAL CANNULA IN PLACE. TELE MONITOR IN PLACE. SALINE LOCK TO RIGHT AC INTACT AND APPEARS HEALTHY AT THIS TIME. VISITORS AT BEDSIDE. SAFETY PRECAUTIONS REINFORCED. CALL LIGHT IN REACH. WILL CONT TO MONITOR.
[2018-07-31 20:00] VITALS: BP 122/55
--- NOTE | 2018-07-31 20:45 | NUR ---
PATIENT MEDICATED WITH HS MEDS INCLUDING KCL 40MEQ PO ORDERED. TEMP DOWN TO 99.9 AT THIS TIME. WILL HANG K-RIDER WHEN AVAILABLE. CALL LIGHT IN REACH. WILL CONT TO MONITOR.
--- NOTE | 2018-07-31 21:45 | NUR ---
PATIENT RESTING IN BED-K-RIDER HUNG AND INFUSING AT 50CC/HR VIA RIGHT AC SITE. SITE REMAINS HEALTHY AT THIS TIME. CALL LIGHT IN REACH. WILL CONT TO MONITOR.
[2018-08-01 00:20] VITALS: BP 131/83
--- NOTE | 2018-08-01 04:00 | NUR ---
APPEARS SLEEPING AT THIS TIME WITH O2 VIA NASAL CANNULA IN PLACE. CALL LIGHT IN REACH. WILL CONT TO MONITOR.
[2018-08-01 04:47] VITALS: BP 134/59
[2018-08-01 05:14] LABS: HEMATOCRIT 22.7 % (39.0-50.0); HEMOGLOBIN 7.9 g/dl (14.0-18.0); IMMATURE GRANULOCYTES 1.6 % (0.0-5.0); MEAN CELL VOLUME 91.5 fL CALC (80.0-100.0); MEAN CORPUSCULAR HGB 31.9 pG CALC (26.0-32.0); MEAN CORPUSCULAR HGB CONC 34.8 g/L CALC (32.0-36.0); NEUT# 1.83 thou/uL (1.82-7.42); RED BLOOD COUNT 2.48 mill/uL (4.70-6.10); RED CELL DISTRI WIDTH 21.1 % (11.5-15.5)
[2018-08-01 05:31] LABS: ALBUMIN 2.7 g/dL (3.2-5.0); ALKALINE PHOSPHATASE 194 u/l (38-126); AMYLASE < 30 u/l (30-110); ANION GAP 8 (6-22 (CALC)); BUN 7 mg/dL (8-23); BUN/CREATININE RATIO 11 (12-20 (CALC)); CARBON DIOXIDE 27 mmol/l (22-30); CHLORIDE 106 mmol/l (95-108); CREATININE 0.7 mg/dL (0.7-1.3); GFR > 60 ML/MIN (>=60 (CALC)); GFR FOR AFR.AMER. > 60 ML/MIN (>=60 (CALC)); LIPASE 19 u/l (23-300); MAGNESIUM 1.9 mg/dL (1.6-2.3); POTASSIUM 2.7 mmol/l (3.5-5.1); SGOT/AST 19 u/l (19-48); SODIUM 138 mmol/l (137-146); TOTAL PROTEIN 4.6 g/dL (6.3-8.2)
[2018-08-01 07:55] VITALS: BP 152/64
--- NOTE | 2018-08-01 08:30 | NUR ---
ASSESSMENT DONE. TELE IN PLACE. PT IS A&O X3. PT DENIES PAIN AT THIS TIME. # 20 RAC THAT APPEAR HEALTHY. PT DENIES NEEDS AT THIS TIME. CALL LIGHT IN REACH.
[2018-08-01 11:25] VITALS: BP 134/59
--- NOTE | 2018-08-01 12:00 | NUR ---
PT IS EATING HIS LUNCH WITH NO S/S OF DISTRESS NOTED. PT DENIES NEEDS AT THIS TIME. CALL LIGHT IN REACH.
[2018-08-01 15:45] VITALS: BP 126/56
--- NOTE | 2018-08-01 16:06 | NUR ---
PT IS RESTING IN BED. FAMILY IN ROOM TO VISIT. PT DENIES ANY NEEDS AT THIS TIME. CALL LIGHT IN REACH.
--- NOTE | 2018-08-01 19:30 | NUR ---
PATIENT RESTING IN BED-EASY TO AROUSE WITH O2 OFF. O2 SATS IN HIGH 80'S. O2 VIA NASAL CANNULA REAPPLIED AT 2LPM AND O2 SATS UP TO LOW-MID 90'S. ENCOURAGED PATIENT TO LEAVE O2 IN PLACE.PATIENT COLOR IS PALE. SKIN IS WARM AND DRY. SALINE LOCK TO RIGHT AC INTAT AND APPEARS HEALTHY AT THIS TIME. TELE MONITOR IN PLACE. SAFETY PRECAUTIONS REINFORCED.CALL LIGHT IN REACH. WILL CONT TO MONITOR.
[2018-08-01 20:23] VITALS: BP 134/46
--- NOTE | 2018-08-01 21:00 | NUR ---
PATIENT RESTING IN BED-FOUND AGAIN WITH O2 OFF-REAPPLIED AGAIN. HS MEDS GIVEN ORDERED. PATIENT MEDICATED WITH ROXICODONE 15MG FOR GENERALIZED PAIN. SAFETY PRECAUTIONS REINFORCED.CALL LIGHT IN REACH. WILL CONT TO MONITOR.
--- NOTE | 2018-08-01 22:15 | NUR ---
SPOKE WITH DR. CHERELLE WILHELMING PATIENT K-2.7 TODAY, NEW ORDERS RECIEVED, KCL 40MEQ PO GIVEN. KCL 20MEQ RIDER HUNG ORDERED AT 50CC/HR VIA RIGHT AC. SAFETY PRECAUTIONS REINFORCED. CALL LIGHT IN REACH. WILL CONT TO MONITOR.
[2018-08-02] VITALS (10 sets, daily range): BP systolic 114–155; BP diastolic 53–68
--- NOTE | 2018-08-02 01:57 | NUR ---
PATIENT FOUND SITTING ON THE SIDE OF THE BED-HAD USED URINAL AND VOIDED 225CC OF CLARK URINE BUT HAD ALSO URINATED ON THE FLOOR. PATIENT APPEARS SLIGHTLY CONFUSED. PATIENT GOWN AND LINENS WERE ALL CHANGED AFTER RECIEVING COMPLETE BED BATH. SITTING UP IN THE CHAIR WHILE THE BED LINENS WERE CHANGED. TELE MONITOR REMAINS IN PLACE. IV SITE TO RIGHT AC INTACT AND K-RIDER IN PROGRESS AT 50CC/HR. SITE REMAINS HEALTHY AT THIS TIME. ASSISTED BACK TO THE BED. BED ALARM INPLACE FOR PATIENT SAFETY. SAFETY PRECAUTIONS REINFORCED. CALL LIGHT IN REACH. WILL CONT TO MONITOR.
--- NOTE | 2018-08-02 05:42 | NUR ---
PATIENT RESTING IN BED WITH O2 VIA NASAL CANNULA IN PLACE. ZOSYN HUNG ORDERED VIA RIGHT AC. CALL LIGHT IN REACH. WILL CONT TO MONITOR.
[2018-08-02 05:56] LABS: HEMATOCRIT 22.5 % (39.0-50.0); HEMOGLOBIN 7.7 g/dl (14.0-18.0); IMMATURE GRANULOCYTES 0.8 % (0.0-5.0); MEAN CELL VOLUME 91.8 fL CALC (80.0-100.0); MEAN CORPUSCULAR HGB 31.4 pG CALC (26.0-32.0); MEAN CORPUSCULAR HGB CONC 34.2 g/L CALC (32.0-36.0); NEUT# 1.96 thou/uL (1.82-7.42); RED BLOOD COUNT 2.45 mill/uL (4.70-6.10); RED CELL DISTRI WIDTH 20.5 % (11.5-15.5)
[2018-08-02 06:10] LABS: ALBUMIN 2.8 g/dL (3.2-5.0); ALKALINE PHOSPHATASE 181 u/l (38-126); ANION GAP 8 (6-22 (CALC)); BILIRUBIN, TOTAL 1.1 mg/dL (0.0-1.4); BUN 7 mg/dL (8-23); BUN/CREATININE RATIO 10 (12-20 (CALC)); CARBON DIOXIDE 27 mmol/l (22-30); CHLORIDE 106 mmol/l (95-108); CREATININE 0.7 mg/dL (0.7-1.3); GFR > 60 ML/MIN (>=60 (CALC)); GFR FOR AFR.AMER. > 60 ML/MIN (>=60 (CALC)); MAGNESIUM 1.8 mg/dL (1.6-2.3); POTASSIUM 2.8 mmol/l (3.5-5.1); SGOT/AST 19 u/l (19-48); SODIUM 139 mmol/l (137-146); TOTAL PROTEIN 4.7 g/dL (6.3-8.2)
--- NOTE | 2018-08-02 13:01 | NUR ---
RESTING IN BED WITH FAMILY IN ROOM. DR ARRIAGA ROUNDED AND DISCUSSED PLAN OF. CARE TO TRANSFUSE PRBC AND HOLD OFF ON CHEMO DRUGS.
--- NOTE | 2018-08-02 19:37 | NUR ---
PT. RESTING IN BED WITH NO DISTRESS NOTED; ON RA; UPDATED ON POC; ASSESSMENT COMPLETED; IV SITE PATENT AND SL; O2 IS AT BEDSIDE; ENCOURAGED TO CALL FOR ANY NEEDS; CALL LIGHT IS IN REACH; WILL CONTINUE TO MONITOR.
--- NOTE | 2018-08-02 20:05 | NUR ---
SPOKE WITH DR. VILLARREAL AND RECEIVED NEW ORDERS TO ONLY GIVE ONE UNIT OF PRBC'S NOT 2; WILL CARRY THIS OUT; ALSO RECEIVED ORDER FOR ONE TIME DOSE OF LASIX POST TRANSFUSION AND TO DO A POTASSIUM LEVEL ON HIM AND NOTIFY HIM OF THE RESULTS; WILL CARRY THESE ORDERS OUT.
--- NOTE | 2018-08-02 21:25 | NUR ---
NOTIFIED DR. VILLARREAL OF POTASSIUM LEVEL BEING 2.9; ORDERS RECEIVED TO STILL CARRY OUT DOSE OF LASIX AFTER TRANSFUSION AND ALSO TO GIVE ORAL POTASSIUM; WILL CARRY OUT.
--- NOTE | 2018-08-02 21:56 | NUR ---
UNIT OF PRBC'S HUNG PER ORDER AND VERIFIED BY 2 NURSES PER PROTOCAL; S/S OF REACTIONS WERE DISCUSSED WITH PT. PRIOR TO ADMINISTRATION; THIS CREDIT CARD ASSOCIATE AT BEDSIDE FOR INITIAL 15 MINUTES;
--- NOTE | 2018-08-02 22:56 | NUR ---
PT. RESTING IN BED WITH NO DISTRESS NOTED; NO REACTIONS NOTED; PRBC'S INFUSING WELL; DENIES NEEDS; VSS; CALL LIGHT IS IN REACH.
[2018-08-03] VITALS (7 sets, daily range): BP systolic 120–151; BP diastolic 58–65
--- NOTE | 2018-08-03 01:19 | NUR ---
PRBC'S FINISHED; IV SITE FLUSHED AND ORDERED LASIX GIVEN; DENIES NEEDS; VSS; NO REACTIONS NOTED; ENCOURAGED TO CALL FOR ANY NEEDS; CALL LIGHT IS IN REACH.
--- NOTE | 2018-08-03 03:41 | NUR ---
PT. RESTING IN BED ON RIGHT SIDE WITH EYES CLOSED;RESP EVEN AND UNLABORED; NO DISTRESS NOTED; CALL LIGHT IS IN REACH.
[2018-08-03 05:57] LABS: HEMATOCRIT 25.7 % (39.0-50.0); HEMOGLOBIN 8.7 g/dl (14.0-18.0); IMMATURE GRANULOCYTES 0.8 % (0.0-5.0); MEAN CELL VOLUME 91.1 fL CALC (80.0-100.0); MEAN CORPUSCULAR HGB 30.9 pG CALC (26.0-32.0); MEAN CORPUSCULAR HGB CONC 33.9 g/L CALC (32.0-36.0); NEUT# 1.89 thou/uL (1.82-7.42); RED BLOOD COUNT 2.82 mill/uL (4.70-6.10); RED CELL DISTRI WIDTH 19.8 % (11.5-15.5)
[2018-08-03 06:20] LABS: ALBUMIN 2.9 g/dL (3.2-5.0); ALKALINE PHOSPHATASE 172 u/l (38-126); ANION GAP 10 (6-22 (CALC)); BILIRUBIN, TOTAL 1.4 mg/dL (0.0-1.4); BUN 8 mg/dL (8-23); BUN/CREATININE RATIO 10 (12-20 (CALC)); CARBON DIOXIDE 26 mmol/l (22-30); CHLORIDE 106 mmol/l (95-108); CREATININE 0.7 mg/dL (0.7-1.3); GFR > 60 ML/MIN (>=60 (CALC)); GFR FOR AFR.AMER. > 60 ML/MIN (>=60 (CALC)); MAGNESIUM 1.8 mg/dL (1.6-2.3); POTASSIUM 3.1 mmol/l (3.5-5.1); SGOT/AST 18 u/l (19-48); SODIUM 139 mmol/l (137-146); TOTAL PROTEIN 4.7 g/dL (6.3-8.2)
--- NOTE | 2018-08-03 08:06 | NUR ---
ASSESSMENT DONE. TELE IN PLACE . PT IS A&O X3. PT DENIES PAIN AT THIS TIME. PT IS REFUSING BREAKFAST AT THIS TIME. PT STATED LATER. PT DENIES ANY NEEDS AT THIS TIME. CALL LIGHT IN REACH.
--- NOTE | 2018-08-03 12:28 | NUR ---
AT BEDSIDE TO ASSESS PT, DISCUSS POC WITH PT AND SON. NOTIFIED MD RE: POTASSIUM 3.1. CALL LIGHT IN REACH.
--- NOTE | 2018-08-03 16:05 | NUR ---
PT RESTING IN BED WITH NO S/S OF DISTRESS NOTED. PT DENIES NEEDS AT THIS TIME. CALL LIGHT IN REACH.
--- NOTE | 2018-08-03 19:30 | NUR ---
ASSESSMENT COMPLETED; NO DISTRESS NOTED; DENIES PAIN; PT. REQUESTS A NICOTINE PATCH; NOTIFIED DR. VILLARREAL; IV SITES X2 PATENT AND SL; ENCOURAGED TO CALL FOR ANY NEEDS; CALL LIGHT IS IN REACH; WILL CONTINUE TO MONITOR.
[2018-08-04] VITALS (7 sets, daily range): BP systolic 127–158; BP diastolic 48–72
--- NOTE | 2018-08-04 00:03 | NUR ---
VSS; NO DISTRESS NOTED; SCHED MILLIE HUNG; DENIES NEEDS/PAIN; URINAL EMPTIED; PO FLUIDS OFFERED; ENCOURAGED TO CALL FOR ANY NEEDS; CALL LIGHT IS IN REACH;
[2018-08-04 05:44] LABS: HEMATOCRIT 23.8 % (39.0-50.0); HEMOGLOBIN 8.2 g/dl (14.0-18.0); IMMATURE GRANULOCYTES 0.2 % (0.0-5.0); MEAN CELL VOLUME 91.5 fL CALC (80.0-100.0); MEAN CORPUSCULAR HGB 31.5 pG CALC (26.0-32.0); MEAN CORPUSCULAR HGB CONC 34.5 g/L CALC (32.0-36.0); NEUT# 2.52 thou/uL (1.82-7.42); RED BLOOD COUNT 2.6 mill/uL (4.70-6.10); RED CELL DISTRI WIDTH 20.2 % (11.5-15.5)
--- NOTE | 2018-08-04 05:52 | NUR ---
SCHED IV ABT HUNG; IV SITE TO RAC REMOVED DUE TO IT BEING IN MAX AMOUNT OF DAYS; CATHETER TIP INTACT; DENIES NEEDS; CALL LIGHT IS IN REACH.
[2018-08-04 06:02] LABS: ALBUMIN 2.8 g/dL (3.2-5.0); ALKALINE PHOSPHATASE 192 u/l (38-126); ANION GAP 12 (6-22 (CALC)); BILIRUBIN, TOTAL 0.9 mg/dL (0.0-1.4); BUN 6 mg/dL (8-23); BUN/CREATININE RATIO 9 (12-20 (CALC)); CARBON DIOXIDE 25 mmol/l (22-30); CHLORIDE 105 mmol/l (95-108); CREATININE 0.7 mg/dL (0.7-1.3); GFR > 60 ML/MIN (>=60 (CALC)); GFR FOR AFR.AMER. > 60 ML/MIN (>=60 (CALC)); MAGNESIUM 1.8 mg/dL (1.6-2.3); POTASSIUM 2.5 mmol/l (3.5-5.1); SGOT/AST 30 u/l (19-48); SODIUM 139 mmol/l (137-146); TOTAL PROTEIN 4.6 g/dL (6.3-8.2)
--- NOTE | 2018-08-04 06:30 | NUR ---
DR. VILLARREAL NOTIFIED OF POTASSIUM BEING 2.5 THIS AM IN LABS; NEW ORDERS RECEIVED AND TO BE CARRIED OUT.
--- NOTE | 2018-08-04 08:05 | NUR ---
SHIFT CHANGE REPORT, PT SLEEPING BUT AWAKENED TO VERBAL STIMULI, ORIENTED, O2 @ 2L VIA NC IN PLACE, SET UP FOR MEAL, CALL EDWARDS IN REACH.
--- NOTE | 2018-08-04 12:00 | NUR ---
DR ARRIAGA ROUNDED, DISCUSSED PLAN TO KEEP FOR 1 MORE DAY, HAVE PHYSICAL THERAPY THEN GO HOME VS REHAB, PT DOES NOT WANT TO GO TO REHAB BUT WANTS TO GO HOME TO HIS OWN HOUSE.
--- NOTE | 2018-08-04 15:00 | NUR ---
PT'S ONCOLOGY SKIN DIVER [facility] CALLED TO INQUIRE ABOUT PTS' CONDITION AND ALSO SPOKE WITH DR ARRIAGA. SHE REPORTED SHE IS IN AGREEMENT WITH THE PLAN OF CARE AT THIS TIME.
--- NOTE | 2018-08-04 19:45 | NUR ---
PATIENT ON BSC FOR LOOSE BM-ASSISTED WITH DORINDA-CARE AND ASSISTED BACK TO BED. PATIENT O2 SAT WAS 97% AT THAT TIME ON RA. . ALERT AND ORIENTEDX3. IV SITE TO LEFT FOREARM AND TO RIGHT WRIST. BOTH APPEAR HEALTHY AT THIS TIME. TELE MONITOR INPLACE. SAFETY PRECAUTIONS REINFORCED. CALL LIGHT IN REACH. WILL CONT TO MONITOR.
--- NOTE | 2018-08-04 21:00 | NUR ---
PATIENT RESTING IN BED-O2 VIA NASAL CANNULA IN PLACE. HS MEDS GIVEN ORDERED. MEDICATED FOR PAIN WITH ROXICODONE 15MG PO FOR GENERALIZED PAIN. SAFETY PRECAUTIONS REINFORCED. CALL LIGHT IN REACH.
--- NOTE | 2018-08-05 00:15 | NUR ---
SLEEPING ON AND OFF. ZOSYN HUNG ORDERED VIA RIGHT WRIST SITE. CALL LIGHT IN REACH. WILL CONT TO MONITOR.
--- NOTE | 2018-08-05 03:20 | NUR ---
APPEARS SLEEPING AT THIS TIME. RESP ARE EVEN AND UNLABORED. CALL LIGHT IN REACH. WILL CONT TO MONITOR.
[2018-08-05 04:45] VITALS: BP 135/58
[2018-08-05 06:11] LABS: HEMATOCRIT 22.3 % (39.0-50.0); HEMOGLOBIN 7.6 g/dl (14.0-18.0); IMMATURE GRANULOCYTES 0.5 % (0.0-5.0); MEAN CELL VOLUME 90.7 fL CALC (80.0-100.0); MEAN CORPUSCULAR HGB 30.9 pG CALC (26.0-32.0); MEAN CORPUSCULAR HGB CONC 34.1 g/L CALC (32.0-36.0); NEUT# 2.01 thou/uL (1.82-7.42); RED BLOOD COUNT 2.46 mill/uL (4.70-6.10); RED CELL DISTRI WIDTH 19.6 % (11.5-15.5)
[2018-08-05 06:21] LABS: ALBUMIN 2.7 g/dL (3.2-5.0); ALKALINE PHOSPHATASE 172 u/l (38-126); ANION GAP 9 (6-22 (CALC)); BILIRUBIN, TOTAL 0.9 mg/dL (0.0-1.4); BUN 4 mg/dL (8-23); BUN/CREATININE RATIO 7 (12-20 (CALC)); CARBON DIOXIDE 24 mmol/l (22-30); CHLORIDE 107 mmol/l (95-108); CREATININE 0.7 mg/dL (0.7-1.3); GFR > 60 ML/MIN (>=60 (CALC)); GFR FOR AFR.AMER. > 60 ML/MIN (>=60 (CALC)); MAGNESIUM 1.7 mg/dL (1.6-2.3); SGOT/AST 22 u/l (19-48); SODIUM 138 mmol/l (137-146); TOTAL PROTEIN 4.5 g/dL (6.3-8.2)
[2018-08-05 06:23] LABS: POTASSIUM 2.4 mmol/l (3.5-5.1)
--- NOTE | 2018-08-05 06:36 | NUR ---
PATIENT WITH TEMP OF 100.0-MEDICATED WITH TYLENOL 650MG PO FOR TEMP. IV ZOSYN FINISHED ORDERED. VOIDED 400CC OF YELLOW URINE IN URINAL. CALL LIGHT IN REACH. WILL CONT TO MONITOR.
--- NOTE | 2018-08-05 07:00 | NUR ---
DR. INGRAM CALLED WITH CRITICAL LAB [facility]US[facility]E-DYW-0.6, K-2.4. ORDERS RRECIEVED AND REPORT GIVEN TO ONCOMING SHIFT.
--- NOTE | 2018-08-05 08:00 | NUR ---
ASSESSMENT DONE. PT IS A&O X3. TELE IN PLACE. PT DENIES PAIN. PT STATED HE FEELS SLEEPY. TRY TO SETUP PT FOR BREAKFAST HE STATED LATER. PT DENIES ANY NEEDS AT THIS TIME. SAFETY PRECAUTIONS REINFORCED AND CALL LIGHT IN REACH.
[2018-08-05 08:17] VITALS: BP 140/60
[2018-08-05 11:32] VITALS: BP 152/97
--- NOTE | 2018-08-05 12:31 | NUR ---
SETUP PT FOR LUNCH. SLOW DOWN POTASSIUM IV TO HALF DUE TO IT WAS BURNING. PT DENIES ANY OTHER NEEDS AT THIS TIME. CALL LIGHT IN REACH.
--- NOTE | 2018-08-05 15:56 | NUR ---
PT IS RESTING IN BED VISITING WITH FAMILY IN ROOM. PT DENIES PAIN AT THIS TIME. THIRD DOSE OF POTASSIUM IV 25ML/HR INFUSING WELL. PT STATED THAT IT DOES NOT BURN. CALL LIGHT IN REACH.
[2018-08-05 16:05] VITALS: BP 147/67
[2018-08-05 19:30] VITALS: BP 157/55
--- NOTE | 2018-08-05 20:00 | NUR ---
PATIENT RESTING IN BED AT THIS TIME. AWAKE ALERT AND ORIENTEDX3. COLOR IS PALE. IV KCL PATENT AND INFUSING ORDERED VIA RIGHT FOREARM SITE. TELE MONITOR IN PLACE. O2 VIA NASAL CANNULA IN PLACE. VOIDING QS CLARK URINE IN THE URINAL. SAFETY PRECAUTIONS REINFORCED. CALL LIGHT IN REACH. WILL CONT TO MONITOR.
[2018-08-06 00:25] VITALS: BP 146/56
--- NOTE | 2018-08-06 00:43 | NUR ---
PATIENT RESTING INBED AT THIS TIME. ZOSYN FINISHED ORDERED VIA RIGHT FOREARM SITE. FLUSHED PER PROTOCOL. TELE MONITOR IN PLACE. CALL LIGHT IN REACH. WILL CONT TO MONITOR.
--- NOTE | 2018-08-06 04:20 | NUR ---
APPEARS SLEEPING AT THIS TIME POSITONED ON SIDE. EYES CLOSED. RESP ARE EVEN AND UNLABORED. TELE MONITOR IN PLACE. CALL LIGHT IN REACH. WILL CONT TO MONITOR.
[2018-08-06 04:25] VITALS: BP 153/59
[2018-08-06 05:03] LABS: ANION GAP 9 (6-22 (CALC)); BUN 4 mg/dL (8-23); BUN/CREATININE RATIO 5 (12-20 (CALC)); CARBON DIOXIDE 26 mmol/l (22-30); CHLORIDE 106 mmol/l (95-108); CREATININE 0.7 mg/dL (0.7-1.3); GFR > 60 ML/MIN (>=60 (CALC)); GFR FOR AFR.AMER. > 60 ML/MIN (>=60 (CALC)); MAGNESIUM 1.7 mg/dL (1.6-2.3); SODIUM 139 mmol/l (137-146)
[2018-08-06 05:09] LABS: POTASSIUM 2.3 mmol/l (3.5-5.1)
[2018-08-06 05:11] LABS: HEMATOCRIT 23.8 % (39.0-50.0); HEMOGLOBIN 8.2 g/dl (14.0-18.0); IMMATURE GRANULOCYTES 0.7 % (0.0-5.0); MEAN CELL VOLUME 91.2 fL CALC (80.0-100.0); MEAN CORPUSCULAR HGB 31.4 pG CALC (26.0-32.0); MEAN CORPUSCULAR HGB CONC 34.5 g/L CALC (32.0-36.0); NEUT# 2.13 thou/uL (1.82-7.42); RED BLOOD COUNT 2.61 mill/uL (4.70-6.10); RED CELL DISTRI WIDTH 19.3 % (11.5-15.5)
--- NOTE | 2018-08-06 05:24 | NUR ---
PATIENT RESTING IN BED. APPEARS SLEEPING WITH ZOSYN INFUSING VIA RIGHT FOREARM SITE. DR. INGRAM CALLED WITH AM LABS-K-2.3-ORDERED KCL 80MEQ IVPB PER PROTOCOL. ALSO NOTIFIED OF HGB-8.2 THIS MORNING AND MAGNESIUM-1.7. ORDERS FAXED TO [facility]. WILL START WHEN PROFILED ON EMAR.
--- NOTE | 2018-08-06 06:20 | NUR ---
KCL 20MEQ IVPB HUNG ORDERED VIA LEFT FOREARM IV SITE. SITE REMAINS HEALTHY AT THIS TIME. INFUSING AT 50CC/HR ORDERED FOR KCL. CALL LIGHT IN REACH. WILL CONT TO MONITOR.
[2018-08-06 07:54] VITALS: BP 144/54
--- NOTE | 2018-08-06 08:00 | NUR ---
PT RESTING IN BED, NO SIGNS OF DISTRESS NOTED, RESP EVEN AND UNLABORED. DISCUSSED POC, NICO COMPLETED AT THIS TIME. NEW NICO INITIATED. PT IN AGREEMENT. ASSESSMENT COMPLETED. ASSISTED PT TO THE BATHROOM, AMBULATED WELL. RETURNED TO BED, CALL LIGHT IN REACH,CONTINUE TO MONITOR.
--- NOTE | 2018-08-06 10:15 | NUR ---
NEXT KRIDER INITATED. PT TOLERATING WELL. CALL LIGHT IN REACH,CONTINUE TO MONITOR.
[2018-08-06 11:53] VITALS: BP 154/60
--- NOTE | 2018-08-06 15:09 | NUR ---
DISCUSSED WITH PT PO POTASSIUM, SON AT BEDSIDE, BOTH IN AGREEMENT. PT TOLERATED WELL. CALL LIGHT IN REACH,CONTINUE TO MONITOR.
[2018-08-06 15:30] VITALS: BP 154/68
[2018-08-06 19:35] VITALS: BP 149/63
--- NOTE | 2018-08-06 20:00 | NUR ---
PATIENT RESTING IN BED AT THIS TIME-AWAKE ALERT AND ORIENTEDX3. VISITORS AT BEDSIDE. PATIENT WITH SALINE LOCK TO RIGHT FOREARM INTACT-APPEARS HEALTHY AT THIS TIME. TELE MONITOR IN [place]. PATIENT IS VOIDING CLARK URINE IN URINAL. SAFETY PRECAUTIONS REINFORCED. CALL LIGHT IN REACH.WILL CONT TO MONITOR.
[2018-08-07 00:30] VITALS: BP 148/60
--- NOTE | 2018-08-07 00:51 | NUR ---
PATIENT RESTING IN BED-APPEARS SLEEPING WITH EYES CLOSED. RESP ARE EVEN AND UNLABORED AT THIS TIME. IV ZOSYN FINISHED ORDERED. CALL LIGHT IN REACH. WILL CONT TO MONITOR. .
[2018-08-07 04:00] VITALS: BP 102/61
--- NOTE | 2018-08-07 04:46 | NUR ---
APPEARS SLEEPING WITH EYES CLOSED. RESP ARE EVEN AND UNLABORED. TELE MONITOR IN PLACE. CALL LIGHT IN REACH. WILL CONT TO MONITOR.
[2018-08-07 05:13] LABS: HEMATOCRIT 24.8 % (39.0-50.0); HEMOGLOBIN 8.5 g/dl (14.0-18.0); IMMATURE GRANULOCYTES 1.3 % (0.0-5.0); MEAN CELL VOLUME 91.9 fL CALC (80.0-100.0); MEAN CORPUSCULAR HGB 31.5 pG CALC (26.0-32.0); MEAN CORPUSCULAR HGB CONC 34.3 g/L CALC (32.0-36.0); NEUT# 2.03 thou/uL (1.82-7.42); RED BLOOD COUNT 2.7 mill/uL (4.70-6.10); RED CELL DISTRI WIDTH 19.4 % (11.5-15.5)
[2018-08-07 05:28] LABS: ANION GAP 11 (6-22 (CALC)); BUN 4 mg/dL (8-23); BUN/CREATININE RATIO 6 (12-20 (CALC)); CARBON DIOXIDE 23 mmol/l (22-30); CHLORIDE 108 mmol/l (95-108); CREATININE 0.7 mg/dL (0.7-1.3); GFR > 60 ML/MIN (>=60 (CALC)); GFR FOR AFR.AMER. > 60 ML/MIN (>=60 (CALC)); POTASSIUM 2.9 mmol/l (3.5-5.1); SODIUM 139 mmol/l (137-146)
--- NOTE | 2018-08-07 07:00 | NUR ---
SHIFT CHANGE REPORT, PT SLEEPING, BREATHING EVEN AND NON-LABORED, TELE MONITOR IN PLACE. PT AWAKENED WITH VERBAL STIMULI, VERY CONFUSED THINKING HE WAS AT HOME AND GRANDSON WAS WAKING HIM UP, REFUSED TO HAVE VITAL SIGNS MEASURED, DISORIENTED TO PLACE AND TIME. REORIENTED TO PPT THEN COOPERATED WITH CARE. ABLE TO RELATE EVENT AND THE FACT HE WAS CONFUSED, CALL EDWARDS IN REACH, WILL CONTINUE TO MONITOR.
[2018-08-07 11:08] VITALS: BP 144/58
--- NOTE | 2018-08-07 12:00 | NUR ---
AWAKE ALERT AND ORIENTED, RECALLS EVENT OF CONFUSION THIS AM, ALL NEEDS MET/ADDRESSED.
[2018-08-07 15:20] VITALS: BP 142/59
--- NOTE | 2018-08-07 16:00 | NUR ---
RESTING IN BED WATCHING TV, NEEDS NEW IV CATHETER CURRENT ONE IS LEAKING, CATHETER PLACED AND PT TOLERATED WELL, WILL CONTINUE TO MONITOR.
--- NOTE | 2018-08-07 16:31 | NUR ---
The patient is seen for ambulation training and instructions for home. He is instructed in pursed lip breathing as well as coughing. He is able to get OOB to stand with min assist of 1 and ambulated about 90 feet with vitals stable. He was able to accomplish this with a FWW and dyspnea no greater than 2 plus He has FWW at home
[2018-08-07 20:00] VITALS: BP 147/67
--- NOTE | 2018-08-07 20:00 | NUR ---
PATIENT HAD ACCIDENT ON THE WAY TO THE BR AND SOILED HIS UNDERGARMENTS. PATIENT HAVING LOOSE WATERY STOOL. STOOL SPEC OBTAINED AND SENT TO LAB. PATIENT WASHED UP AND ASSISTED BACK TO BED. PATIENT CONT TO BE PALE. IV SITE TO LEFT AC INTACT-KCL IS FINISHING UP. SITE REMAINS HEALTHY AT THIS TIME. TELE MONITOR IN PLACE. SON AT BEDSIDE. SAFETY PRECAUTIONS REINFORCED. CALL LIGHT IN REACH. WILL CONT TO MONITOR.
[2018-08-07 20:25] LABS: C. DIFFICILE TOXIN A&B NEGATIVE (NEGATIVE)
[2018-08-07 23:51] VITALS: BP 157/58
--- NOTE | 2018-08-08 02:25 | NUR ---
APPEARS SLEEPING AT THIS TIME. EYES CLOSED. RESP EVEN AND UNLABORED. CALL LIGHT IN REACH. WILL CONT TO MONITOR.
[2018-08-08 05:02] VITALS: BP 118/55
[2018-08-08 06:05] LABS: HEMATOCRIT 24.8 % (39.0-50.0); HEMOGLOBIN 8.3 g/dl (14.0-18.0); IMMATURE GRANULOCYTES 1.4 % (0.0-5.0); MEAN CELL VOLUME 93.6 fL CALC (80.0-100.0); MEAN CORPUSCULAR HGB 31.3 pG CALC (26.0-32.0); MEAN CORPUSCULAR HGB CONC 33.5 g/L CALC (32.0-36.0); NEUT# 2.01 thou/uL (1.82-7.42); RED BLOOD COUNT 2.65 mill/uL (4.70-6.10)
--- NOTE | 2018-08-08 06:08 | NUR ---
PATIENT RESTING IN BED-ZOSYN INFUSED ORDERED. SALINE LOCK TO LEFT FOREARM INTACT. TELE MONITOR IN PLACE. CALL LIGHT IN REACH. WILL CONT TO MONITOR.
[2018-08-08 06:21] LABS: ALBUMIN 2.8 g/dL (3.2-5.0); ALKALINE PHOSPHATASE 179 u/l (38-126); ANION GAP 11 (6-22 (CALC)); BILIRUBIN, TOTAL 0.4 mg/dL (0.0-1.4); BUN 5 mg/dL (8-23); BUN/CREATININE RATIO 6 (12-20 (CALC)); CARBON DIOXIDE 25 mmol/l (22-30); CHLORIDE 107 mmol/l (95-108); CREATININE 0.7 mg/dL (0.7-1.3); GFR > 60 ML/MIN (>=60 (CALC)); GFR FOR AFR.AMER. > 60 ML/MIN (>=60 (CALC)); MAGNESIUM 1.7 mg/dL (1.6-2.3); POTASSIUM 2.9 mmol/l (3.5-5.1); SGOT/AST 19 u/l (19-48); SODIUM 139 mmol/l (137-146); TOTAL PROTEIN 4.6 g/dL (6.3-8.2)
--- NOTE | 2018-08-08 07:00 | NUR ---
SHIFT CHANGE REPORT, PT SLEEPING BUT AWAKEN TO VEBAL STIMULI, ORIENTED, NO C/O DISCOMFORT, TELE MONITOR IN PLACE, CALL EDWARDS IN REACH.
[2018-08-08 07:58] VITALS: BP 137/61
[2018-08-08 11:04] VITALS: BP 132/50
--- NOTE | 2018-08-08 11:51 | NUR ---
PT WAS SEEN FOR GAIT TRAINING. HE WAS OOB WITH MODIFIED INDEP. PULLING SELF UP ON BEDRAIL. HIS SITING BALANCE WAS GOOD. HE STOOD UP WITH MODIFIED INDEP. PUSHING SELF UP ON BED. IMMEDIATE STANDING BALANCE REQUIRED WALKER. HIS SPO2 REMAINED ON 90'S ON ROOM AIR. HE THEN AMBULATED IN THE HALLWAY ~70 FT. X 2 WITH RW AND CGA. NO SOB OR DIZZINESS NOTED OR REPORTED DURING AND AT THE END OF ACTIVITIES. PT RETURNED TO ROOM AND SAT DOWN IN THE RECLINER. HANDED THE CALL EDWARDS TO HIM. LEFT HIM WITH NURSE IN THE ROOM.
--- NOTE | 2018-08-08 12:00 | NUR ---
UP WITH PHYSICAL THERAPIST AND RELAXING IN RECLINER, REQUESTED TO GET BACK IN BED THEN DR ARRIAGA ROUNDED AND DISCUSSED PLAN OF CARE WITH PT AND FAMILY. PT STATED HE WANTS TO GO HOME TODAY, WILL CONTINUE TO MONITOR.
[2018-08-08 13:13] LABS: ANION GAP 11 (6-22 (CALC)); BUN 5 mg/dL (8-23); BUN/CREATININE RATIO 7 (12-20 (CALC)); CARBON DIOXIDE 26 mmol/l (22-30); CHLORIDE 108 mmol/l (95-108); CREATININE 0.8 mg/dL (0.7-1.3); GFR > 60 ML/MIN (>=60 (CALC)); GFR FOR AFR.AMER. > 60 ML/MIN (>=60 (CALC)); POTASSIUM 3.1 mmol/l (3.5-5.1); SODIUM 142 mmol/l (137-146)
[2018-08-08 15:15] VITALS: BP 159/67
[2018-08-08 19:55] VITALS: BP 157/64
--- NOTE | 2018-08-08 20:00 | NUR ---
PATIENT RESTING IN BED WITH VISITORS AT BEDSIDE. PATIENT IS AWAKE ALERT AND ORIENTEDX3. PATIENT COLOR REMAINS PALE. IV KCL IN PROGRESS AT THIS TIME VIA LEFT AC SITE. SITE APPEARS HEALTHY AT THIS TIME. TELE MONITOR IN REACH. VOIDING QS CLARK URINE IN URINAL. NO BM'S TODAY. SAFETY PRECAUTIONS REINFORCED. CALL LIGHT IN REACH. WILL CONT TO MONITOR.
--- NOTE | 2018-08-08 21:00 | NUR ---
RESTING IN BED-REFUSED SURFHIWOT TONAMI. STATES THAT HE MIGHT BE GOING HOME TOMORROW-AXIOUS ABOUT DISCHARGE. PATIENT MEDICATED FOR GENERALIZED PAIN WITH ROXICODONE 15MG PO. OTHER HS MEDS GIVEN ORDERED. SAFETY PRECAUTIONS REINFORCED. CALL LIGHT IN REACH. WILL CONT TO MONITOR.
--- NOTE | 2018-08-09 | NUR ---
RESTING IN BED-ZOSYN INFUSING ORDERED [facility] SITE. NO COMPLAINTS AT THIS TIME TELE MONITOR IN [place]. CALL LIGHT IN REACH. WILL CONT TO MONITOR.
[2018-08-09 00:25] VITALS: BP 161/62
[2018-08-09 04:40] VITALS: BP 148/58
[2018-08-09 06:17] LABS: HEMATOCRIT 24.8 % (39.0-50.0); HEMOGLOBIN 8.2 g/dl (14.0-18.0); IMMATURE GRANULOCYTES 0.9 % (0.0-5.0); MEAN CELL VOLUME 95.4 fL CALC (80.0-100.0); MEAN CORPUSCULAR HGB 31.5 pG CALC (26.0-32.0); MEAN CORPUSCULAR HGB CONC 33.1 g/L CALC (32.0-36.0); NEUT# 1.95 thou/uL (1.82-7.42); RED BLOOD COUNT 2.6 mill/uL (4.70-6.10); RED CELL DISTRI WIDTH 20.9 % (11.5-15.5)
[2018-08-09 06:32] LABS: ALBUMIN 2.7 g/dL (3.2-5.0); ALKALINE PHOSPHATASE 177 u/l (38-126); ANION GAP 10 (6-22 (CALC)); BILIRUBIN, TOTAL 0.3 mg/dL (0.0-1.4); BUN 5 mg/dL (8-23); BUN/CREATININE RATIO 8 (12-20 (CALC)); CARBON DIOXIDE 24 mmol/l (22-30); CHLORIDE 109 mmol/l (95-108); CREATININE 0.7 mg/dL (0.7-1.3); GFR > 60 ML/MIN (>=60 (CALC)); GFR FOR AFR.AMER. > 60 ML/MIN (>=60 (CALC)); MAGNESIUM 1.8 mg/dL (1.6-2.3); SGOT/AST 18 u/l (19-48); SODIUM 140 mmol/l (137-146); TOTAL PROTEIN 4.5 g/dL (6.3-8.2)
--- NOTE | 2018-08-09 07:20 | NUR ---
REPORT RECEIVED FROM KANE CRABTREE;PT APPEARS TO BE SLEEPING IN SEMI FOWLERS POSITION;RESPIRATIONS APPEAR EVEN AND UNLABORED ON RA;NO S/S OF DISTRESS NOTED;TELE MONITORING IN PLACE;FALL PRECAUTIONS NOTED WITH BED IN THE LOWEST POSITION AND CALL LIGHT IN REACH;WILL CONTINUE TO MONITOR
--- NOTE | 2018-08-09 09:25 | NUR ---
PT RESTING IN SEMI FOWLERS POSITION;ALERT AND ORIENTED X3;VS OBTAINED AND ASSESSMENT COMPLETED;PT DENIES ANY CURRENT PAIN OR NEEDS,PAIN SCALE AND REPORTING EDUCATED;RESPIRATIONS EVEN AND UNLABORED ON RA;ABDOMEN DISTENDED/SOFT ON PALPATION AND ACTIVE IN ALL 4 QUADRANTS;STRONG PEDAL PULSES;SKIN INTACT;#20G TO LAC FLUSHED AND PATENT,SITE APPEARS HEALTHY;TELE MONITORING IN PLACE;NICOTINE PATCH APPLIED TO RIGHT SHOULDER;PT ENCOURAGED TO CALL FOR ASSISTANCE IF NEEDED;FALL PRECAUTIONS IN PLACE WITH CALL LIGHT IN REACH;WILL CONTINUE TO MONITOR
[2018-08-09 09:27] VITALS: BP 146/71
[2018-08-09 11:36] VITALS: BP 149/63
--- NOTE | 2018-08-09 12:35 | NUR ---
PT RESTING IN SEMI FOWLERS POSITION;RESPIRATIONS EVEN AND UNLABORED ON RA;PT DENIES ANY CURRENT PAIN OR NEEDS;EDUCATED ON POC INCLUDING DISCHARGE HOME THIS AFTERNOON AND PT VERBLIZES UNDERSTANDING;TELE MONITORING IN PLACE;IV SITE TO LAC INFUSING ZOSYN WITH EASE;PT ENCOURAGED TO CALL FOR ASSISTANCE IF NEEDED;AWAITING DISCHARGE ORDER AT THIS TIME;WILL CONTINUE TO MONITOR
--- NOTE | 2018-08-09 13:52 | NUR ---
ALL DISCHARGE INSTRUCTIONS PROVIDED AT THIS TIME;QUESTIONS ANSWERED;PT DENIES ANY CURRENT NEEDS;WHEELCHAIR TO BE PROVIDED FOR DISCHARGE HOME;AWAITING FAMILY FOR TRANSPORTATION.
--- NOTE | 2018-08-09 13:55 | NUR ---
Discharge instructions given. Patient verbalizes understanding of same. Discharged in stable condition via Wheelchair to Home with family. All belongings sent with pt. [facility] accompanied by volunteer and son.
== END 2018-08-09 13:55 | DRG 811 ==
LOC: ED 01:22 → ED-I 02:00 → ED 02:47 → ICU 03:00 → MS2 03:00 → ICU 03:00 → MS2 16:47
PROVIDERS: Emergency Medicine; Internal Medicine; Nurse Practitioner Family; ADMIT Internal Medicine; ATTEND Internal Medicine Nephrology
PROC: 30233N1 Transfusion of Nonautologous Red Blood Cells into Peripheral Vein, Percutaneous Approach (ICD-10-PCS; principal; 2018-07-30)
PROC: 30233N1 Transfusion of Nonautologous Red Blood Cells into Peripheral Vein, Percutaneous Approach (ICD-10-PCS; 2018-07-30)
PROC: 30233N1 Transfusion of Nonautologous Red Blood Cells into Peripheral Vein, Percutaneous Approach (ICD-10-PCS; 2018-07-30)
PROC: 30233N1 Transfusion of Nonautologous Red Blood Cells into Peripheral Vein, Percutaneous Approach (ICD-10-PCS; 2018-08-02)
DX: D64.81 Anemia due to antineoplastic chemotherapy (principal); J18.9 Pneumonia, unspecified organism; C79.51 Secondary malignant neoplasm of bone; J44.1 Chronic obstructive pulmonary disease with (acute) exacerbation; J44.0 Chronic obstructive pulmonary disease with (acute) lower respiratory infection; T45.1X5A Adverse effect of antineoplastic and immunosuppressive drugs, initial encounter; C61 Malignant neoplasm of prostate; I10 Essential (primary) hypertension; I25.10 Atherosclerotic heart disease of native coronary artery without angina pectoris; G89.3 Neoplasm related pain (acute) (chronic); F32.9 Major depressive disorder, single episode, unspecified; N40.0 Benign prostatic hyperplasia without lower urinary tract symptoms; E87.6 Hypokalemia; K59.00 Constipation, unspecified; F17.200 Nicotine dependence, unspecified, uncomplicated; E78.5 Hyperlipidemia, unspecified; F41.1 Generalized anxiety disorder; I25.2 Old myocardial infarction; Z79.899 Other long term (current) drug therapy; Z95.1 Presence of aortocoronary bypass graft
CPT/HCPCS: G0378; P9016

== ENCOUNTER 2018-08-16 13:14 | Observation (INO) | payer MEDICARE ==
[~2018-08-16] VITALS: Ht 182.9 cm; Wt 81.7 kg
--- NOTE | 2018-08-16 13:33 | NUR ---
PT TO ROOM AWC IN NO ACUTE DISTRESS
--- NOTE | 2018-08-16 13:48 | NUR ---
PT STATES JUST GOT OUT OF [facility] LAST WEEK, WAS SUPPOSE TO BE FOLLOW ING UP WITH HOME HEALTH, BUT HASNT MADE APPT YET FOR PT.
--- NOTE | 2018-08-16 14:21 | NUR ---
PT RESTING QUIETLY ON STRETCHER, FAMILY AT BEDSIDE.
[2018-08-16 14:40] LABS: IMMATURE GRANULOCYTES 0.5 % (0.0-5.0); MEAN CELL VOLUME 99.7 fL CALC (80.0-100.0); MEAN CORPUSCULAR HGB 32.4 pG CALC (26.0-32.0); MEAN CORPUSCULAR HGB CONC 32.5 g/L CALC (32.0-36.0); NEUT# 2.37 thou/uL (1.82-7.42); RED BLOOD COUNT 3.27 mill/uL (4.70-6.10); RED CELL DISTRI WIDTH 23.2 % (11.5-15.5)
[2018-08-16 14:44] LABS: HEMATOCRIT 32.6 % (39.0-50.0); HEMOGLOBIN 10.6 g/dl (14.0-18.0)
[2018-08-16 14:52] LABS: ANION GAP 13 (6-22 (CALC)); BUN 9 mg/dL (8-23); BUN/CREATININE RATIO 12 (12-20 (CALC)); CARBON DIOXIDE 30 mmol/l (22-30); CHLORIDE 100 mmol/l (95-108); CREATININE 0.7 mg/dL (0.7-1.3); GFR > 60 ML/MIN (>=60 (CALC)); GFR FOR AFR.AMER. > 60 ML/MIN (>=60 (CALC)); POTASSIUM 2.9 mmol/l (3.5-5.1); SODIUM 139 mmol/l (137-146)
--- NOTE | 2018-08-16 15:46 | NUR ---
ADVISED PT OF PLAN OF CARE, HE VOICES UNDERSTANDING.
--- NOTE | 2018-08-16 15:50 | NUR ---
UNABLE TO VERIFY HOME MEDS, PT STATES CANT REMEMBER THEM
--- NOTE | 2018-08-16 16:03 | NUR ---
PT RESTING QUIETLY ON STRETCHER, NO COMPLAINTS, TALKING AND LAUGHING WITH VISITORS, VITAL SIGNS STABLE
--- NOTE | 2018-08-16 17:22 | NUR ---
PT ARRIVED TO FLOOR VIA STRETCHER IN STABLE CONDITION ACCOMPANIED BY GILDA,KANE AND SON;PT ALERT TO PERSON ONLY,ATTEMPTED TO RE-ORIENT NEEDED;PT AMBULATED WITH A WEAK GAIT AND 1 PERSON ASSIST;WT AND VS OBTAINED AT THIS TIME;PT DENIES ANY CURRENT PAIN OR DISCOMFORTS,PAIN SCALE AND REPORTING EDUCATED;PT REPORTS MULTIPLE FALLS OVER THE LAST FEW DAYS AND WEAKNESS;ASSESSMENT COMPLETED;RESPIRATIONS SHALLOW ON RA,CLEAR LUNG SOUNDS NOTED;ABDOMEN SOFT ON PALPATION AND HYPOACTIVE IN ALL 4 QUADRANTS,LAST BM 08/09/18;WEAK PEDAL PULSES;SKIN INTACT;TELE MONITORING IN PLACE;#20G TO LAC FLUSHED AND PATENT,SITE APPEARS HEALTHY;PT AND SON DENIES ANY CURRENT NEEDS;FRESH WATER PROVIDED PER REQUEST;ENCOURAGED TO CALL FOR ASSISTANCE IF NEEDED;FALL PRECAUTIONS IN PLACE WITH BED ALARM ON FOR SAFETY;CALL LIGHT IN REACH;WILL CONTINUE TO MONITOR
--- NOTE | 2018-08-16 17:31 | NUR ---
REPORT GIVEN TO MED SURG FOR CONTINUATION OF CARE. PT TAKEN TO MED SURG PER STRETCHER AND TELEMENTRY
[2018-08-16 17:36] VITALS: BP 164/69
[2018-08-16 18:46] VITALS: BP 145/58
--- NOTE | 2018-08-16 19:19 | NUR ---
PT. SITTING UP IN BED WATCHING TV; NO RESP DISTRESS NOTED; IV SITE PATENT AND SL; TELEMETRY IN PLACE; PO FLUIDS OFFERED; PT. IS ALERT TO PERSON AND KNOWS HE IS AT A HOSPITAL, BUT INCORRECT WITH WHICH ONE; INSTRUCTED TO CALL FOR ALL OOB NEEDS; BED ALARM SET FOR SAFETY PRECAUTIONS; CALL LIGHT IS IN REACH; WILL CONTINUE TO MONITOR.
--- NOTE | 2018-08-16 21:42 | NUR ---
PT. RESTING IN BED WITH EYES CLOSED; RESP EVEN AND UNLABORED; CALL LIGHT IS IN REACH.
--- NOTE | 2018-08-17 | NUR ---
PT. RESTING IN BED WITH EYES CLOSED; RESP EVEN AND UNLABORED; BED ALARM ON; CALL LIGHT IS IN REACH.
--- NOTE | 2018-08-17 03:08 | NUR ---
PT. RESTING IN BED WITH EYES CLOSED;RESP EVEN AND UNLABORED; CALL LIGHT IS IN REACH.
[2018-08-17 04:00] VITALS: BP 141/72
--- NOTE | 2018-08-17 05:20 | NUR ---
PT. INCONTINENT OF LARGE URINE; SHORTS AND UNDERWEAR REMOVED; DORINDA CARE GIVEN; NEW GOWN AND LINENS PROVIDED; PO FLUIDS OFFERED; BED ALARM RESET. CALL LIGHT IS IN REACH.
[2018-08-17 05:47] LABS: HEMATOCRIT 28.7 % (39.0-50.0); HEMOGLOBIN 9.4 g/dl (14.0-18.0); IMMATURE GRANULOCYTES 0.5 % (0.0-5.0); MEAN CELL VOLUME 99.3 fL CALC (80.0-100.0); MEAN CORPUSCULAR HGB 32.5 pG CALC (26.0-32.0); MEAN CORPUSCULAR HGB CONC 32.8 g/L CALC (32.0-36.0); NEUT# 1.47 thou/uL (1.82-7.42); RED BLOOD COUNT 2.89 mill/uL (4.70-6.10); RED CELL DISTRI WIDTH 22.9 % (11.5-15.5)
[2018-08-17 06:05] LABS: ALBUMIN 2.8 g/dL (3.2-5.0); ALKALINE PHOSPHATASE 173 u/l (38-126); AMYLASE 35 u/l (30-110); ANION GAP 10 (6-22 (CALC)); BILIRUBIN, TOTAL 0.6 mg/dL (0.0-1.4); BUN 8 mg/dL (8-23); BUN/CREATININE RATIO 12 (12-20 (CALC)); CARBON DIOXIDE 29 mmol/l (22-30); CHLORIDE 104 mmol/l (95-108); CREATININE 0.7 mg/dL (0.7-1.3); GFR > 60 ML/MIN (>=60 (CALC)); GFR FOR AFR.AMER. > 60 ML/MIN (>=60 (CALC)); LIPASE < 10 u/l (23-300); POTASSIUM 2.9 mmol/l (3.5-5.1); SGOT/AST 22 u/l (19-48); SODIUM 140 mmol/l (137-146); TOTAL PROTEIN 4.6 g/dL (6.3-8.2)
--- NOTE | 2018-08-17 07:00 | NUR ---
REPORT RECEIVED FROM KANE WOLF;PT APPEARS TO BE SLEEPING IN SEMI FOWLERS POSITION;RESPIRATIONS SHALLOW ON RA;NO S/S OF DISTRESS NOTED;FALL PRECAUTIONS IN PLACE WITH BED IN THE LOWEST POSITION AND BED ALARM ON FOR SAFETY;CALL LIGHT IN REACH;WILL CONTINUE TO MONITOR
[2018-08-17 08:30] VITALS: BP 159/68
--- NOTE | 2018-08-17 08:30 | NUR ---
PT RESTING IN SEMI FOWLERS POSITION;VS OBTAINED AND ASSESSMENT COMPLETED;PT ALERT AND ORIENTED X2 THIS MORNING, RE-ORIENTED ON TIME;PT DENIES ANY CURRENT PAIN OR NEEDS,PAIN SCALE AND REPORTING EDUCATED;RESPIRATIONS SHALLOW ON RA,CLEAR LUNG SOUNDS;ABDOMEN SOFT ON PALPATION WITH HYPOACTIVE BOWEL SOUNDS,LAST BM 08/09/18 LACTULOSE BEING ADMINISTERED ORDERED;WEAK PEDAL PULSES;SKIN INTACT BUT GENERALIZED BRUISING NOTED;#20G TO LAC FLUSHED AND PATENT,SITE APPEARS HEATHY;PT DENIES ANY ADDITIONAL NEEDS AT THIS TIME AND IS ENCOURAGED TO CALL FOR ASSISTANCE IF NEEDED;BED ALARM ON FOR SAFETY;CALL LIGHT IN REACH;WILL CONTINUE TO MONITOR
--- NOTE | 2018-08-17 11:30 | NUR ---
PT RESTING IN BED WITH FAMILY AT BEDSIDE;RESPIRATIONS EVEN AND UNLABORED ON RA;PT DENIES ANY CURRENT PAIN OR NEEDS;REMAINS ORIENTED TO PERSON AND PLACE;ENCOURAGED PT TO EXPRESS NEEDS AND CONCERNS;FALL PRECAUTIONS REMAIN IN PLACE WITH BED ALARM ON FOR SAFETY;CALL LIGHT IN REACH;WILL CONTINUE TO MONITOR
--- NOTE | 2018-08-17 12:13 | NUR ---
AT BEDSIDE DISCUSSING POC.
[2018-08-17 14:26] VITALS: BP 115/68
--- NOTE | 2018-08-17 15:00 | NUR ---
HOSPIC REP CHRISTINE AT BEDSIDE WITH FAMILY.
[2018-08-17] MEDS ORDERED: CENTRUM PO (15:11)
[2018-08-17] MEDS ORDERED: BAYER ASA325 MG PO (15:13)
[2018-08-17] MEDS ORDERED: ACCUPRIL10 MG PO (15:17)
[2018-08-17] MEDS ORDERED: CLOPIDOGREL75 MG PO (15:19)
[2018-08-17] MEDS ORDERED: LIPITOR10 M1 PO (15:20)
[2018-08-17] MEDS ORDERED: TAMSULOSIN HCL0.4 MG PO (15:20)
[2018-08-17] MEDS ORDERED: AMLODIPINE10 MG PO (15:21)
[2018-08-17] MEDS ORDERED: MOTRIN800 MG PO (15:23)
[2018-08-17] MEDS ORDERED: FISH OIL CON300 MG PO (15:25)
[2018-08-17] MEDS ORDERED: PROVENTIL HFA PO (15:27)
[2018-08-17] MEDS ORDERED: RANITIDINE150 M1 PO (15:28)
[2018-08-17] MEDS ORDERED: FLEXERIL PO (15:30)
--- NOTE | 2018-08-17 15:30 | NUR ---
PT RESTING IN BED WITH FAMILY AT BEDSIDE;RESPIRATIONS EVEN AND UNLABORED ON RA;PT DENIES ANY CURRENT PAIN OR NEEDS;IV SITE TO LAC REMAINS PATENT;URINAL AT BEDSIDE;ENCOURAGED TO CALL FOR ASSISTANCE IF NEEDED;FALL PRECAUTIONS IN PLACE WITH BED ALARM ON FOR PT SAFETY;CALL LIGHT IN REACH;WILL CONTINUE TO MONITOR
[2018-08-17] MEDS ORDERED: ALLERGY NA50 MCG/ACT PO (15:33)
[2018-08-17] MEDS ORDERED: MICRO-K10 ME1 PO (15:35)
[2018-08-17] MEDS ORDERED: MORPHINE SUL30 M5 PO (15:36)
[2018-08-17] MEDS ORDERED: OXYCODONE15 MG PO (15:39)
[2018-08-17] MEDS ORDERED: PAROXETINE10 MG PO (15:39)
[2018-08-17] MEDS ORDERED: VALIUM5 MG PO (15:40)
[2018-08-17] MEDS ORDERED: BUPROPION HCL150 M2 PO (15:41)
[2018-08-17 16:50] VITALS: BP 182/75
[2018-08-17 18:36] VITALS: BP 166/72
--- NOTE | 2018-08-17 20:10 | NUR ---
ASSESSMENT COMPLETED; IV SITE PATENT AND SL; PT. ALERT TO SELF ONLY; BED ALARM SET; GRANDSON IN AT BEDSIDE AND DENIES ANY QUESTIONS; BED ALARM ON FOR PT. SAFETY; CALL LIGHT IS IN REACH; WILL CONTINUE TO MONITOR.
--- NOTE | 2018-08-17 23:00 | NUR ---
BED ALARM SOUNDING; PT. UP AND ASSISTED INTO THE BATHROOM AND BACK INTO BED; RE-ORIENTED TO CALL LIGHT USE; BED ALARM SET FOR SAFETY PRECAUTIONS; CALL LIGHT IS IN REACH.
--- NOTE | 2018-08-18 03:46 | NUR ---
RESTING IN BED WITH EYES CLOSED; RESP EVEN AND UNLABORED; BED ALARM ON; CALL LIGHT IS IN REACH.
[2018-08-18 03:51] VITALS: BP 158/60
--- NOTE | 2018-08-18 05:40 | NUR ---
PT. RESTING IN BED WITH NO DISTRESS NOTED; DENIES NEES; CALL LIGHT IS IN REACH; BED ALARM SET.
[2018-08-18 05:53] LABS: HEMATOCRIT 29.5 % (39.0-50.0); HEMOGLOBIN 9.6 g/dl (14.0-18.0); IMMATURE GRANULOCYTES 0.2 % (0.0-5.0); MEAN CELL VOLUME 98.3 fL CALC (80.0-100.0); MEAN CORPUSCULAR HGB CONC 32.5 g/L CALC (32.0-36.0); NEUT# 2.31 thou/uL (1.82-7.42); RED CELL DISTRI WIDTH 22.7 % (11.5-15.5)
[2018-08-18 06:01] LABS: ALBUMIN 3.2 g/dL (3.2-5.0); ALKALINE PHOSPHATASE 198 u/l (38-126); AMYLASE 49 u/l (30-110); ANION GAP 11 (6-22 (CALC)); BILIRUBIN, TOTAL 0.7 mg/dL (0.0-1.4); BUN 6 mg/dL (8-23); BUN/CREATININE RATIO 9 (12-20 (CALC)); CARBON DIOXIDE 28 mmol/l (22-30); CHLORIDE 103 mmol/l (95-108); CREATININE 0.7 mg/dL (0.7-1.3); GFR > 60 ML/MIN (>=60 (CALC)); GFR FOR AFR.AMER. > 60 ML/MIN (>=60 (CALC)); LIPASE 26 u/l (23-300); MAGNESIUM 1.9 mg/dL (1.6-2.3); POTASSIUM 2.6 mmol/l (3.5-5.1); SGOT/AST 24 u/l (19-48); SODIUM 139 mmol/l (137-146); TOTAL PROTEIN 5.2 g/dL (6.3-8.2)
[2018-08-18 08:45] VITALS: BP 138/69
--- NOTE | 2018-08-18 08:53 | NUR ---
PT SITTING UP IN RECLINER EATING BREAKFAST AND WATCHING TV; NURSE INSTRUCTER STATED PT HAD A LG LOOSE BM, DID DORINDA CARE; FOUND IV REMOVED AND LAYING IN BED, SITE APPEARS HEALTHY; LUNGS CLEAR; PULSES STRONG; HYPOACTIVE BS; NO EDEMA NOTED; LOTON APPLIED TO BILAT LEGS, SOCKS APPLIED; LEGS ELEVATED; BED ALARM ACCTIVE; CALL EDWARDS IN REACH; PT VOICE NO CONCERNS; AM MEDS ADMINISTERED;SON AT BEDSIDE; WILL CONTINUE TO MONITOR.
--- NOTE | 2018-08-18 10:43 | NUR ---
[facility]HOSPICE CALLED WANTED TO KNOW HOW PT'S DOING; SAID MONICA FOR SINDNEY/SON; WILL TALK TO DORA.
--- NOTE | 2018-08-18 11:20 | NUR ---
ASSISTED PT TO BSC, VOIDED, CLEAR, YELLOW URINE, SCANT LOOSE BM; DORINDA CARE DONE, BARRIER CREAM APPLIED TO BUTTOCKS; ASSISTED BACK TO BED, BED ALARM ACTICE, CALL EDWARDS IN REACH; SON AT BEDSIDE;
--- NOTE | 2018-08-18 13:13 | NUR ---
NEW IV START, K+ 25CC/HR WITH NS @75; TELE APPLIED; TOLERATED WELL; SON AT BEDSIDE; BED ALARM ACTIVE;
[2018-08-18 15:23] LABS: C. DIFFICILE TOXIN A&B NEGATIVE (NEGATIVE)
[2018-08-18 15:40] VITALS: BP 181/82
--- NOTE | 2018-08-18 15:46 | NUR ---
pt voided 200cc, clear , yellow urine in the urinal; seems more alert; laying in bed watching tv; resp even and unlabored on room air; tele in place; iv site appears healthy; bed alarm active; will continue to monitor.
--- NOTE | 2018-08-18 15:55 | NUR ---
Discharge instructions given. Patient verbalizes understanding of same. Discharged in stable condition via Wheelchair to Home with family. All belongings sent with pt.
[2018-08-18 16:14] VITALS: BP 140/60
--- NOTE | 2018-08-18 17:42 | NUR ---
DC INSTRUCTIONS GIVEN TO PT'S SON, VERBALIZED UNDERSTANDING; CNAS AT BEDSIDE GETTING PT DRESSED;
== END 2018-08-18 15:53 | disposition hospice, home (50) ==
LOC: ED 13:14 → ED-I 15:25 → ED 15:44 → MS2 15:45 → ED-I 15:45 → MS2 17:14
PROVIDERS: Family Medicine; ADMIT Internal Medicine Nephrology; ATTEND Internal Medicine Nephrology
DX: G92 Toxic encephalopathy (principal); T45.1X5A Adverse effect of antineoplastic and immunosuppressive drugs, initial encounter; E87.6 Hypokalemia; G89.3 Neoplasm related pain (acute) (chronic); C61 Malignant neoplasm of prostate; C79.51 Secondary malignant neoplasm of bone; C78.7 Secondary malignant neoplasm of liver and intrahepatic bile duct; D64.81 Anemia due to antineoplastic chemotherapy; I10 Essential (primary) hypertension; J44.9 Chronic obstructive pulmonary disease, unspecified; I25.10 Atherosclerotic heart disease of native coronary artery without angina pectoris; E11.9 Type 2 diabetes mellitus without complications; F03.90 Unspecified dementia, unspecified severity, without behavioral disturbance, psychotic disturbance, mood disturbance, and anxiety; I25.2 Old myocardial infarction; M19.90 Unspecified osteoarthritis, unspecified site; F17.200 Nicotine dependence, unspecified, uncomplicated; S09.90XA Unspecified injury of head, initial encounter; S39.92XA Unspecified injury of lower back, initial encounter; S49.91XA Unspecified injury of right shoulder and upper arm, initial encounter; W19.XXXA Unspecified fall, initial encounter; Y92.009 Unspecified place in unspecified non-institutional (private) residence as the place of occurrence of the external cause; Z95.1 Presence of aortocoronary bypass graft; Z51.5 Encounter for palliative care
CPT/HCPCS: G0378